=== PATIENT | male | born 1940 | race Caucasian/White ===

== ENCOUNTER 2017-03-31 10:27 | Inpatient (IN) | payer OTHER ==
[2017-03-31] VITALS (7 sets, daily range): BP systolic 134–173; BP diastolic 81–100; PULSE 70–86; TEMP 36.4–36.5; O2SAT 93–95; Ht 185.4 cm; Wt 104.3 kg
[~2017-03-31] VITALS: Ht 185.4 cm; Wt 104.3 kg
[~2017-03-31 10:27] MED LIST: ALBUAER2 INH; ASPI-435 PO; ATEN50TA8 PO; COEN10CA4 PO; FLVHFA110 INH; LACTTAB PO; LEVO50TA6 PO; LISI-461 PO; OXYB5TAB21 PO; TIOTCAP INH; WHEATAB2 PO; ZCR40 PO
[2017-03-31] MEDS ORDERED: ALBUTEROL 0.083% NEBU SOLN 3 ML VIAL INH STA (10:47)
[2017-03-31] MEDS ORDERED: HYDR12.55 PO (10:52)
[2017-03-31] MEDS ORDERED: CZR50 PO (10:52)
[2017-03-31] MEDS ORDERED: SPRIN PO (10:52)
[2017-03-31] MEDS ORDERED: PRED20TA2 PO (10:53)
[2017-03-31] MEDS ORDERED: LEVO1TAB33 PO (10:53)
[2017-03-31 11:11] LABS: BASO % 0.1 %; BASO ABS # 0.01 K/uL (0-0.2); COMPLETE YES; EOS % 0.7 %; IG% 0.4 %; LYMPH ABS # 2.43 K/uL (1.2-3.4); MEAN CELL VOLUME 90.1 fL (80-100); MEAN CORPUSCULAR HEMOGLOBIN 30.8 pg (25-34); MEAN CORPUSCULAR HGB CONC 34.2 g/dl (32-36); MEAN PLATELET VOLUME 9.3 fL (7.4-10.4); MONO % 12.2 %; NEUT % 71.6 %; PLATELET COUNT 248 K/uL (130-400); RED BLOOD COUNT 5.55 M/uL (4.7-6.1); WHITE BLOOD COUNT 16.19 K/uL (4.8-10.8)
--- NOTE | 2017-03-31 11:25 | DIAGNOSTIC IMAGING REPORT ---
CHEST ONE VIEW PORTABLE CLINICAL HISTORY: Cough. COMPARISON STUDY: No previous studies for comparison. FINDINGS: The patient is rotated. This likely accounts for asymmetric lucency of the left hemithorax. There is no consolidation or evidence of pulmonary edema. No pneumothorax or pleural effusion is present. Cardiomediastinal silhouette is normal. IMPRESSION: No acute cardiopulmonary findings. Electronically signed by: Troy Bateman M.D. 03/31/2017 11:24 AM Dictated Date/Time: 03/31/2017 11:23 AM
[2017-03-31 11:30] LABS: BUN/CREATININE RATIO 16.1 (10-20); CALCIUM 8.7 mg/dl (8.5-10.1); POTASSIUM 3.2 mmol/L (3.5-5.1)
[2017-03-31] MEDS ORDERED: ONDANSETRON INJ 2 MG/ML 2 ML VIAL IV PRN (13:30)
[2017-03-31] MEDS ORDERED: POTASSIUM CHLORIDE 20 MEQ TABCR PO ONE (13:30)
[2017-03-31] MEDS ORDERED: NICOTINE POLACRILEX 2 MG GUM MT PRN (13:30)
[2017-03-31] MEDS ORDERED: POLYETHYLENE (MIRALAX) 17 GM PACK PO PRN (13:30)
[2017-03-31] MEDS ORDERED: ACETAMINOPHEN 325 MG TAB PO PRN (13:30)
[2017-03-31] MEDS ORDERED: ALBUT/IPRATROP 3MG/0.5MG NEB 3 ML VIAL INH PRN (13:30)
[2017-03-31 13:39] LABS: INR 1.1 (0.9-1.1); PROTHROMBIN TIME (PATIENT) 11.8 SECONDS (9.0-12.0)
--- NOTE | 2017-03-31 13:46 | History and Physical ---
History & Physical Date & Time of Service: March 31, 2017 at 13:33 Chief Complaint: Chest Cold, Possible Pneumonia-Per 's Office Primary Care Physician: Tapan Kaye D.O. History of Present Illness Source: patient, family, clinic records 76 yo smoker presents to the ER today with his as a referral from an outside urgent care facility. He reports worsening of SOB over the last two days after having unsuccessfully treating a COPD exacerbation over the last 7- 10 days. He reports using Levaquin 500mg daily and three days into this course began a 5-day course of prednisone. His congestion improved and his cough ceased, however, he continued to have some difficulty breathing. He denies any chest pain, fevers, chills, nausea, vomiting, diarrhea, or systemic illness. He denies any headaches, sore throat, or ear fullness. He is currently requiring 2L oxygen via nasal canula and is not on home oxygen typically. He is compliant with inhalers and does not see a housekeeper child care. He did have another COPD exacerbation in Dec 2016, which was treated as an outpatient. He does continue to smoke. He reports that both his and a friend were sick with cold symptoms recently, when his symptoms began. Past Medical/Surgical History Medical Problems: (1) Asthma Status: Resolved (2) BPH (benign prostatic hyperplasia) Permanent Comment: s/p TURP in 2013 Status: Chronic (3) Bronchitis Status: Resolved (4) CAD (coronary artery disease) Permanent Comment: cath in 2006-mild luminal irregularities in the midportion of the LAD and small aneurysm located next to a moderate second right ventriculat branch off the RCA that was not flow-limiting. Status: Chronic (5) COPD (chronic obstructive pulmonary disease) Status: Chronic (6) COPD exacerbation Status: Chronic (7) H/O paroxysmal supraventricular tachycardia Status: Chronic (8) Heart disease Status: Resolved (9) HTN (hypertension) Status: Chronic (10) Hyperlipidemia Status: Chronic (11) Mild aortic insufficiency Status: Chronic (12) PNA (pneumonia) Status: Resolved (13) Tobacco abuse Status: Chronic Surgical Problems: (1) S/P AAA (abdominal aortic aneurysm) repair Permanent Comment: 1992 Status: Chronic Family History FH: heart disease Hypertension Social History Smoking Status: Current Every Day Smoker Smokeless Tobacco Use: Unknown Alcohol Use: occasionally Drug Use: none Marital Status: Housing status: lives with significant other Occupational Status: retired Immunizations History of Influenza Vaccine: Yes Influenza Vaccine Date: Aug 09, 2016 History of Tetanus Vaccine?: Yes Tetanus Immunization Date: Aug 10, 2013 History of Pneumococcal: Yes Pneumococcal Date: Aug 26, 2006 History of Hepatitis B Vaccine: No Multi-Drug Resistant Organisms History of MDRO: No Allergies Coded Allergies: Bacitracin (Verified Allergy, Unknown, ., 03/31/17) Neomycin (Verified Allergy, Unknown, ., 03/31/17) Polymyxin B (Verified Allergy, Unknown, ., 03/31/17) Sulfa Antibiotics (Verified Allergy, Unknown, ., 03/31/17) Home Medications Scheduled Aspirin (Aspirin 81), 81 MG PO QAM Atenolol (Tenormin), 25 MG PO BID Coenzyme Q10 (Ubidecarenone) (Coq-10), 10 MG PO QPM Fluticasone Propionate (Flovent Hfa), 2 PUFFS INH BID Hydrochlorothiazide (Hydrochlorothiazide), 12.5 MG PO DAILY Lactobacillus (Probiata), 1 TAB PO QAM Levofloxacin (Levaquin), 500 MG PO DAILY Levothyroxine Sodium (Levothyroxine Sodium), 50 MCG PO QAM Losartan Potassium (Losartan Potassium), 50 MG PO BID Prednisone (Prednisone Tab), 20 MG PO DIRECTED Simvastatin (Simvastatin), 40 MG PO HS Tiotropium [place] (Spiriva Handihaler), 1 CAP PO QAM Wheat Dextrin (Benefiber), 1 TAB PO QAM Scheduled PRN Albuterol (Ventolin Hfa), 2 PUFFS INH Q4H PRN for Shortness of Breath Review of Systems Constitutional: No chills, No fatigue, No fever, No weakness Eyes: No problem reported, No worsening of vision ENT: No hearing loss, No nasal symptoms, No sore throat Respiratory: + shortness of breath, No cough, No hemoptysis, No sputum, No wheezing Cardiovascular: No chest pain Abdomen: No GI bleeding, No constipation, No diarrhea, No nausea, No pain, No vomiting Musculoskeletal: No problem reported Genitourinary - Male: No problem reported Neurologic: No problem reported Psychiatric: + insomnia Hematologic / Lymphatic: No abnormal bleeding/bruising Integumentary: No new/changing skin lesions Allergic / Immunologic: No food allergies Physical Exam Vital Signs Date Time Temp Pulse Resp B/P Pulse Ox O2 Delivery O2 Flow Rate FiO2 03/31/17 12:10 93 Nasal Cannula 3.0 03/31/17 12:09 87 Room Air 03/31/17 12:00 76 22 162/84 88 Room Air 03/31/17 10:50 90 Room Air 03/31/17 10:31 36.8 72 20 190/102 91 Room Air GEN: WNWD, in no acute distress, alert and appropriate, NC in place and no conversational dyspnea on 2L HEENT: NC/AT, normal sclerae, pupils are equal and round, normal conjunctivae, TM could not be seen 2/2 cerumen in the external canals bilaterally, pharynx was clear, no submandibular or cervical LAD, no sinus TTP. CARDIO: reg rate, S1/2 heard without m/g/r LUNGS: expiratory wheezing throughout lungs in all espinoza ABD: soft, non-tender, non-distended, no rebound or guarding, +hernia which is easily reduced and non-tender EXTREMITY: no LE swelling or edema, extremities are warm and well-perfused NEURO: CN 2-12 grossly intact, sensation intact throughout MUSC: no gross focal deficits, patient moves all extremities equally. SKIN: warm and dry Diagnostics Laboratory Results Results Past 24 Hours Test 03/31/17 11:00 03/31/17 11:12 03/31/17 13:25 Range/Units White Blood Count 16.19 4.8-10.8 K/uL Red Blood Count 5.55 4.7-6.1 M/uL Hemoglobin 17.1 14.0-18.0 g/dL Hematocrit 50.0 42-52 % Mean Corpuscular Volume 90.1 80-100 fL Mean Corpuscular Hemoglobin 30.8 25-34 pg Mean Corpuscular Hemoglobin Concent 34.2 32-36 g/dl Platelet Count 248 130-400 K/uL Mean Platelet Volume 9.3 7.4-10.4 fL Neutrophils (%) (Auto) 71.6 % Lymphocytes (%) (Auto) 15.0 % Monocytes (%) (Auto) 12.2 % Eosinophils (%) (Auto) 0.7 % Basophils (%) (Auto) 0.1 % Neutrophils # (Auto) 11.59 1.4-6.5 K/uL Lymphocytes # (Auto) 2.43 1.2-3.4 K/uL Monocytes # (Auto) 1.98 0.11-0.59 K/uL Eosinophils # (Auto) 0.12 0-0.5 K/uL Basophils # (Auto) 0.01 0-0.2 K/uL RDW Standard Deviation 43.4 36.4-46.3 fL RDW Coefficient of Variation 13.2 11.5-14.5 % Immature Granulocyte % (Auto) 0.4 % Immature Granulocyte # (Auto) 0.06 0.00-0.02 K/uL Sodium Level 139 136-145 mmol/L Potassium Level 3.2 3.5-5.1 mmol/L Chloride Level 101 98-107 mmol/L Carbon Dioxide Level 32 21-32 mmol/L Anion Gap 6.0 3-11 mmol/L Blood Urea Nitrogen 16 7-18 mg/dl Creatinine 1.00 0.60-1.40 mg/dl Est Creatinine Clear Calc Drug Dose 80.9 ml/min Estimated GFR () 85.0 Estimated GFR (Non- 73.3 BUN/Creatinine Ratio 16.1 10-20 Random Glucose 98 70-99 mg/dl Calcium Level 8.7 8.5-10.1 mg/dl Influenza Type A Antigen Neg for Influ A NEG Influenza Type B Antigen Neg for Influ B NEG CXR normal Normal EKG (SR71) Impression Assessment and Plan 76 yo M smoker presents with SOB after 7-10 days of unsuccessful outpatient therapy 1. COPD exacerbation-there was an initial illness present and sick contacts which may have started this, however, he continues to smoke daily and is not interested in quitting at this time. Smoking cessation was strongly advised. Failure of Levaquin (5-8 days) and prednisone (approx 5 days) as outpatient and has persistent wheezing. CXR is clear and there is no cough, fever, chills, malaise or other symptoms concerning for pneumonia at this time. New hypoxia which can be explained by the wheezing on exam-mild but present. Admitting to floor and starting Solumedrol 40 IV q8 with neb treatments and doxycycline. Most likely no infectious etiology at this point with the duration and coverage of the Levaquin, so may stop doxy sooner than later, however, would like to cover him initially for the first 24 hours to ensure he is improving. Nicotine replacement givne. 2. HTN-controlled on outpatient meds including atenolol (holding with active wheezing(, losartan and HCTZ. Cont to monitor q4h 3. Active smoker-encouraged to quit, nicotine replacement offered/given 4. Hypothyroidism-cont Synthroid replacement 5. Hyperlipidemia-cont Simvastatin per outpatient regimen 6. Hypokalemia-replace PO, check Mg and recheck in am. Full Code Heart Healthy diet Dispo-to floor DVT proph-Lovenox/SCDs [facility] Level of Care Med/Surg Resuscitation Status FULL RESUSCITATION VTE Prophylaxis VTE Risk Assessment Done? Y/N: Yes Risk Level: Moderate Given or contraindicated: Enoxaparin (Lovenox)SQ
--- NOTE | 2017-03-31 14:43 | EMERGENCY ROOM VISIT NOTE ---
History Report prepared by [place]: Wilner Meyer Under the Supervision of: Dr. Edinson Dias D.O. First contact with patient: 10:37 Chief Complaint: CONGESTION Stated Complaint: CHEST COLD, POSSIBLE PNEUMONIA-PER 'S OFFICE History of Present Illness The patient is a 76 year old male with a history of COPD who presents to the Emergency Room with complaints of a persistent illness that started a week ago. He was referred here prior to arrival this morning from [facility] for a potential pneumonia workup. He did not have a chest x-ray there. The patient says that his illness first started off as a bad cough, but he took medication for it and the severe cough went away. The patient also notes that he has a chronic cough due to his COPD. He says that he has had a runny nose this week as well, with a clear discharge. He is also short of breath. The patient notes that he does not wear oxygen at home, but he has been using his albuterol twice per day, and a nebulizer only at night. The patient says that he has been taking Levaquin and Prednisone for the past week, and he has 5 days left on the Levaquin. He says that the Levaquin has not helped at all. The patient denies any fevers, chest pain, sore throat, nausea, vomiting, abdominal pain, or ear pain. His last bowel movement was this morning, and it was small but normal. Source of History: patient, spouse/significant other Onset: A week ago Position: other (global - illness) Timing: other (persistent) Associated Symptoms: + SOB, + cough, No abdominal pain, No chest pain, No diarrhea, No fevers, No nausea, No sorethroat, No vomiting Note: Associated symptoms: Runny nose with clear discharge. Denies ear pain. Review of Systems See HPI for pertinent positives & negatives. A total of 10 systems reviewed and were otherwise negative. Past Medical & Surgical Medical Problems: (1) Asthma (2) BPH (benign prostatic hyperplasia) (3) Bronchitis (4) CAD (coronary artery disease) (5) COPD (chronic obstructive pulmonary disease) (6) COPD exacerbation (7) H/O paroxysmal supraventricular tachycardia (8) Heart disease (9) HTN (hypertension) (10) Hyperlipidemia (11) Mild aortic insufficiency (12) PNA (pneumonia) (13) Tobacco abuse Surgical Problems: (1) S/P AAA (abdominal aortic aneurysm) repair Family History FH: heart disease Hypertension Social History Smoking Status: Current Every Day Smoker Alcohol Use: occasionally Marital Status: Housing Status: lives with family Occupation Status: retired Current/Historical Medications Scheduled Aspirin (Aspirin 81), 81 MG PO QAM Atenolol (Tenormin), 25 MG PO BID Coenzyme Q10 (Ubidecarenone) (Coq-10), 10 MG PO QPM Fluticasone Propionate (Flovent Hfa), 2 PUFFS INH BID Hydrochlorothiazide (Hydrochlorothiazide), 12.5 MG PO DAILY Lactobacillus (Probiata), 1 TAB PO QAM Levofloxacin (Levaquin), 500 MG PO DAILY Levothyroxine Sodium (Levothyroxine Sodium), 50 MCG PO QAM Losartan Potassium (Losartan Potassium), 50 MG PO BID Prednisone (Prednisone Tab), 20 MG PO DIRECTED Simvastatin (Simvastatin), 40 MG PO HS Tiotropium [place] (Spiriva Handihaler), 1 CAP PO QAM Wheat Dextrin (Benefiber), 1 TAB PO QAM Scheduled PRN Albuterol (Ventolin Hfa), 2 PUFFS INH Q4H PRN for Shortness of Breath Allergies Coded Allergies: Bacitracin (Verified Allergy, Unknown, ., 03/31/17) Neomycin (Verified Allergy, Unknown, ., 03/31/17) Polymyxin B (Verified Allergy, Unknown, ., 03/31/17) Sulfa Antibiotics (Verified Allergy, Unknown, ., 03/31/17) Physical Exam Vital Signs Date Time Temp Pulse Resp B/P Pulse Ox O2 Delivery O2 Flow Rate FiO2 03/31/17 12:10 93 Nasal Cannula 3.0 03/31/17 12:09 87 Room Air 03/31/17 12:00 76 22 162/84 88 Room Air 03/31/17 10:50 90 Room Air 03/31/17 10:31 36.8 72 20 190/102 91 Room Air Physical Exam GENERAL: sitting up in bed, no acute distress, nontoxic EYE EXAM: normal conjunctiva OROPHARYNX: no exudate, no erythema, lips, buccal mucosa, and tongue normal and mucous membranes are moist NECK: supple, no nuchal rigidity, no adenopathy, non-tender LUNGS: Diffuse wheezing bilateral HEART: no murmurs, S1 normal and S2 normal ABDOMEN: abdomen soft, non-tender, normo-active bowel sounds, no masses, no rebound or guarding. BACK: Back is symmetrical on inspection and there is no deformity, no midline tenderness, no CVA tenderness. SKIN: no rashes and no bruising UPPER EXTREMITIES: upper extremities are grossly normal. LOWER EXTREMITIES: No pitting edema. NEURO EXAM: Normal sensorium, cranial nerves II-XII grossly intact, normal speech, no gross weakness of arms, no gross weakness of legs. Medical Decision & Procedures ER Provider Diagnostic Interpretation: Radiology results as stated below per my review and the radiologist's interpretation: CHEST ONE VIEW PORTABLE CLINICAL HISTORY: Cough. COMPARISON STUDY: No previous studies for comparison. FINDINGS: The patient is rotated. This likely accounts for asymmetric lucency of the left hemithorax. There is no consolidation or evidence of pulmonary edema. No pneumothorax or pleural effusion is present. Cardiomediastinal silhouette is normal. IMPRESSION: No acute cardiopulmonary findings. Electronically signed by: Troy Bateman M.D. 03/31/2017 11:24 AM Dictated Date/Time: 03/31/2017 11:23 AM Laboratory Results 03/31/17 11:00 Red Blood Count 5.55, Mean Corpuscular Volume 90.1, Mean Corpuscular Hemoglobin 30.8, Mean Corpuscular Hemoglobin Concent 34.2, Mean Platelet Volume 9.3, Neutrophils (%) (Auto) 71.6, Lymphocytes (%) (Auto) 15.0, Monocytes (%) (Auto) 12.2, Eosinophils (%) (Auto) 0.7, Basophils (%) (Auto) 0.1, Neutrophils # (Auto ) 11.59, Lymphocytes # (Auto) 2.43, Monocytes # (Auto) 1.98, Eosinophils # (Auto ) 0.12, Basophils # (Auto) 0.01 03/31/17 11:00 Test 03/31/17 11:00 03/31/17 11:12 White Blood Count 16.19 K/uL (4.8-10.8) Red Blood Count 5.55 M/uL (4.7-6.1) Hemoglobin 17.1 g/dL (14.0-18.0) Hematocrit 50.0 % (42-52) Mean Corpuscular Volume 90.1 fL (80-100) Mean Corpuscular Hemoglobin 30.8 pg (25-34) Mean Corpuscular Hemoglobin Concent 34.2 g/dl (32-36) Platelet Count 248 K/uL (130-400) Mean Platelet Volume 9.3 fL (7.4-10.4) Neutrophils (%) (Auto) 71.6 % Lymphocytes (%) (Auto) 15.0 % Monocytes (%) (Auto) 12.2 % Eosinophils (%) (Auto) 0.7 % Basophils (%) (Auto) 0.1 % Neutrophils # (Auto) 11.59 K/uL (1.4-6.5) Lymphocytes # (Auto) 2.43 K/uL (1.2-3.4) Monocytes # (Auto) 1.98 K/uL (0.11-0.59) Eosinophils # (Auto) 0.12 K/uL (0-0.5) Basophils # (Auto) 0.01 K/uL (0-0.2) RDW Standard Deviation 43.4 fL (36.4-46.3) RDW Coefficient of Variation 13.2 % (11.5-14.5) Immature Granulocyte % (Auto) 0.4 % Immature Granulocyte # (Auto) 0.06 K/uL (0.00-0.02) Prothrombin Time 11.8 SECONDS (9.0-12.0) Prothromb Time International Ratio 1.1 (0.9-1.1) Anion Gap 6.0 mmol/L (3-11) Est Creatinine Clear Calc Drug Dose 80.9 ml/min Estimated GFR () 85.0 Estimated GFR (Non- 73.3 BUN/Creatinine Ratio 16.1 (10-20) Calcium Level 8.7 mg/dl (8.5-10.1) Magnesium Level 2.3 mg/dl (1.8-2.4) Influenza Type A Antigen Neg for Influ A (NEG) Influenza Type B Antigen Neg for Influ B (NEG) Laboratory results per my review. Medications Administered Medications (Trade) Dose Ordered Sig/Rosa Route Start Time Stop Time Status Last Admin Dose Admin Albuterol Sulfate (Ventolin 0.083% 2.5MG/3ML Neb) 5 mg NOW STAT INH 03/31/17 10:47 03/31/17 10:49 DC 03/31/17 11:26 5 MG ECG Indication: SOB/dyspnea Rate (beats per minute): 71 Rhythm: normal sinus Findings: Q waves (septal), no ectopy, other (normal axis) Comparison ECG Date: no prior available ED Course ED COURSE: Vital signs were reviewed and showed hypertensive and hypoxic vitals. The patients medical record was reviewed The above diagnostic studies were performed and reviewed. ED treatments and interventions as stated above. 1038: The patient was evaluated in room A9B. A complete history and physical examination was performed. 1047: Ordered Ventolin 0.083% 2.5MG/3ML Neb 5 mg INH. 1210: Upon reevaluation, the patient is resting comfortably. I discussed my findings with the patient and he understands and agrees with the treatment plan. Based on the patients age, coexisting illnesses, exam and lab findings the decision to treat as an inpatient was made. The patient remained stable while under my care. The patient will be evaluated for further management. 1213: I discussed the patient with Marjan Lancaster - she will evaluate the patient for further treatment. Medical Decision Differential diagnoses includes but is not limited to pneumonia, bronchitis, COPD/Asthma exacerbation, pneumothorax, pulmonary embolism, congestive heart failure, acute coronary syndrome Patient is a 76-year-old male with a past medical history of COPD that presents the ER for one week's worth of shortness of breath associated with cough and runny nose. Upon presentation his pulse ox only 90%. This drops down to 87% with any kind of exertion or movement. He was given neb treatment. Patient has are taking steroids and oral Levaquin today. He has been on Levaquin orally for the past 7 days. No improvement. Labs show a mild leukocytosis which I favor secondary to steroids is been taking. With his shortness of breath he was admitted/observed the internal medicine for further workup. Consults Time Called: 1207 Consulting Physician: Marjan Lancaster Returned Call: 1213 I discussed the patient with Marjan Lancaster - she will evaluate the patient for further treatment. Impression Primary Impression: COPD exacerbation Additional Impression: Bronchitis Scribe Attestation The scribe's documentation has been prepared under my direction and personally reviewed by me in its entirety. I confirm that the note above accurately reflects all work, treatment, procedures, and medical decision making performed by me. Departure Information Dispostion Being Evaluated By Hospitalist Referrals Tapan aKye D.O. (PCP) Patient Instructions My [facility] Problem Qualifiers
[2017-03-31] MEDS: METHYLPREDNISOLONE IV 40 MG in SYRINGE 0 ML IV SCH ×2 (14:48→21:19)
[2017-03-31] MEDS: ALBUT/IPRATROP 3MG/0.5MG NEB 3 ML VIAL NEB SCH ×2 (15:15→19:55)
[2017-03-31] MEDS ORDERED: NICOTINE 21 MG/24 HR TDSY TD ONE (15:27)
[2017-03-31] MEDS: DOXYCYCLINE HYCLATE 100 MG CAP PO SCH (21:18)
[2017-03-31] MEDS: SIMVASTATIN 40 MG TAB PO SCH (21:18)
[2017-03-31] MEDS: LOSARTAN POTASSIUM 50 MG TAB PO SCH (21:18)
[2017-03-31] MEDS: ENOXAPARIN 40 MG/0.4 ML SYR SQ SCH (21:20)
[2017-04-01] VITALS (7 sets, daily range): BP systolic 129–148; BP diastolic 71–82; PULSE 62–84; TEMP 36.7–36.8; O2SAT 91–98
[2017-04-01] MEDS: ALBUT/IPRATROP 3MG/0.5MG NEB 3 ML VIAL NEB SCH ×4 (02:25→19:42)
[2017-04-01] MEDS: METHYLPREDNISOLONE IV 40 MG in SYRINGE 0 ML IV SCH ×2 (05:57→18:24)
[2017-04-01] MEDS: LEVOTHYROXINE 50 MCG TAB PO SCH (05:57)
[2017-04-01] MEDS: ASPIRIN 81 MG ECTAB PO SCH (07:26)
[2017-04-01] MEDS: LOSARTAN POTASSIUM 50 MG TAB PO SCH ×2 (07:26→20:39)
[2017-04-01] MEDS: DOXYCYCLINE HYCLATE 100 MG CAP PO SCH ×2 (07:28→20:39)
[2017-04-01] MEDS: HYDROCHLOROTHIAZIDE 25 MG TAB PO SCH (07:28)
[2017-04-01] MEDS: LACTOBACILLUS ACIDOPHILUS (FLORANEX) TAB PO SCH (07:28)
[2017-04-01] MEDS: NICOTINE 21 MG/24 HR TDSY TD SCH (07:29)
--- NOTE | 2017-04-01 09:54 | Progress Note ---
Medicine Progress Note Date & Time of Visit: April 01, 2017 at 09:48. Subjective patient seen resting in bedside chair, doing puzzles comfortable states he feels improved today compared to yesterday breathing better has occasional cough with clear sputum denies chest pain, dyspnea, palpitations, dizziness no other symptoms Objective Last 8 Hrs Date Time Temp Pulse Resp B/P Pulse Ox O2 Delivery O2 Flow Rate FiO2 04/01/17 08:00 Nasal Cannula 3.0 04/01/17 07:43 36.8 71 18 148/82 98 3.0 04/01/17 06:58 74 18 94 Nasal Cannula 3.0 04/01/17 02:25 83 18 95 Nasal Cannula 4.0 Physical Exam: General- oriented x 3, not in distress, speaks in sentences with no effort Eyes- EOMI, anicteric ENT- oropharynx clear Neck- supple, no JVD, no adenopathy, no thyromegaly; no bruits appreciated Lungs- clear breath sounds bilaterally, no wheezing, no rales Heart- regular rhythm; no murmur, normal rate Abdomen- normal bowel sounds, soft, nontender, no masses Extremities- no pretibial edema, no calf tenderness; peripheral pulses intact Neuro- alert, oriented x 3; no gross focal deficits Skin- warm & dry Laboratory Results: Last 24 Hours Test 03/31/17 11:00 03/31/17 11:12 04/01/17 09:38 White Blood Count 16.19 K/uL Red Blood Count 5.55 M/uL Hemoglobin 17.1 g/dL Hematocrit 50.0 % Mean Corpuscular Volume 90.1 fL Mean Corpuscular Hemoglobin 30.8 pg Mean Corpuscular Hemoglobin Concent 34.2 g/dl Platelet Count 248 K/uL Mean Platelet Volume 9.3 fL Neutrophils (%) (Auto) 71.6 % Lymphocytes (%) (Auto) 15.0 % Monocytes (%) (Auto) 12.2 % Eosinophils (%) (Auto) 0.7 % Basophils (%) (Auto) 0.1 % Neutrophils # (Auto) 11.59 K/uL Lymphocytes # (Auto) 2.43 K/uL Monocytes # (Auto) 1.98 K/uL Eosinophils # (Auto) 0.12 K/uL Basophils # (Auto) 0.01 K/uL RDW Standard Deviation 43.4 fL RDW Coefficient of Variation 13.2 % Immature Granulocyte % (Auto) 0.4 % Immature Granulocyte # (Auto) 0.06 K/uL Prothrombin Time 11.8 SECONDS Prothromb Time International Ratio 1.1 Sodium Level 139 mmol/L Potassium Level 3.2 mmol/L Chloride Level 101 mmol/L Carbon Dioxide Level 32 mmol/L Anion Gap 6.0 mmol/L Blood Urea Nitrogen 16 mg/dl Creatinine 1.00 mg/dl Est Creatinine Clear Calc Drug Dose 80.9 ml/min Estimated GFR () 85.0 Estimated GFR (Non- 73.3 BUN/Creatinine Ratio 16.1 Random Glucose 98 mg/dl Calcium Level 8.7 mg/dl Magnesium Level 2.3 mg/dl Influenza Type A Antigen Neg for Influ A Influenza Type B Antigen Neg for Influ B Assessment & Plan 76 year old male with history of COPD, Smoking, CAD, PSVT, other problems below presenting with cough and shortness of breath. ACUTE HYPOXIC RESPIRATORY FAILURE SECONDARY TO ACUTE COPD EXACERBATION - failed outpatient treatment with prednisone and levaqun - on admission day, O2 sat 87% on room air at one point - CXR : no pneumonia - no wheezing today - taper IV steroids to 40mg q12h continue Doxycycline, Nebs q6h CAD no cardiac symptoms continue Aspirin, Statin, Atenolol, Losartan HTN - continue Atenolol, HCTZ, Losartan Active smoker - advised cessation Hypothyroidism-cont Synthroid replacement Hyperlipidemia-cont Simvastatin per outpatient regimen Hypokalemia pending K Full Code Heart Healthy diet Dispo- possible d/c home tomorrow may need 2 step exercise test DVT proph-Lovenox/SCDs Vanessa Wright DO [facility] Hospitalist Current Inpatient Medications: Current Inpatient Medications Medications (Trade) Dose Ordered Sig/Rosa Route Start Time Stop Time Status Last Admin Dose Admin Albuterol/ Ipratropium (Duoneb) 3 ml Q6R NEB 03/31/17 15:00 04/30/17 14:59 04/01/17 06:58 3 ML Enoxaparin Sodium (Lovenox Inj) 40 mg QPM SQ 03/31/17 21:00 04/30/17 20:59 03/31/17 21:20 40 MG Acetaminophen (Tylenol Tab) 650 mg Q4H PRN PO 03/31/17 13:30 04/30/17 13:29 Polyethylene (Miralax Powder Packet) 17 gm DAILY PRN PO 03/31/17 13:30 04/30/17 13:29 Ondansetron HCl (Zofran Inj) 4 mg Q6H PRN IV 03/31/17 13:30 04/30/17 13:29 Albuterol/ Ipratropium (Duoneb) 3 ml Q2H PRN INH 03/31/17 13:30 04/30/17 13:29 Nicotine Polacrilex 1 piece 1 piece PRN PRN MT 03/31/17 13:30 04/30/17 13:29 Methylprednisolone Sodium Succinate/ Syringe (Solu-Medrol IV/ Syringe) 0.64 ml @ 1.5 mls/min Q8H IV 03/31/17 15:00 04/30/17 14:59 04/01/17 05:57 1.5 MLS/MIN Doxycycline Hyclate (Vibramycin Cap) 100 mg BID PO 03/31/17 21:00 04/07/17 20:59 04/01/17 07:28 100 MG Aspirin (Ecotrin Tab) 81 mg QAM PO 04/01/17 09:00 05/01/17 08:59 04/01/17 07:26 81 MG Lactobacillus Acidophilus (Floranex Tab) 1 tab QAM PO 04/01/17 09:00 05/01/17 08:59 04/01/17 07:28 1 TAB Levothyroxine Sodium (Synthroid Tab) 50 mcg DAILYBB PO 04/01/17 06:30 05/01/17 06:59 04/01/17 05:57 50 MCG Losartan Potassium (coZAAR TAB) 50 mg BID PO 03/31/17 21:00 04/30/17 20:59 04/01/17 07:26 50 MG Simvastatin (Zocor Tab) 40 mg HS PO 03/31/17 21:00 04/30/17 20:59 03/31/17 21:18 40 MG Hydrochlorothiazide (Hydrochlorothiazide Tab) 12.5 mg QAM PO 04/01/17 09:00 05/01/17 08:59 04/01/17 07:28 12.5 MG Nicotine (Nicoderm Cq 21MG Patch) 1 patch QAM TD 04/01/17 09:00 05/01/17 08:59 04/01/17 07:29 1 PATCH Miscellaneous (Remove Nicoderm Patch) 1 ea HS N/A 03/31/17 21:00 04/30/17 20:59 03/31/17 21:00 1 EA Atenolol (Tenormin Tab) 25 mg BID PO 04/01/17 21:00 05/01/17 20:59
[2017-04-01 10:39] LABS: COMPLETE YES; HEMATOCRIT 48.8 % (42-52); IG% 0.6 %; LYMPH % 5.6 %; LYMPH ABS # 0.91 K/uL (1.2-3.4); MEAN CORPUSCULAR HEMOGLOBIN 30.4 pg (25-34); MEAN CORPUSCULAR HGB CONC 33.4 g/dl (32-36); MEAN PLATELET VOLUME 9.4 fL (7.4-10.4); MONO % 6.1 %; NEUT % 87.7 %; PLATELET COUNT 227 K/uL (130-400); RED BLOOD COUNT 5.36 M/uL (4.7-6.1)
[2017-04-01 11:09] LABS: BUN/CREATININE RATIO 17.1 (10-20); CALCIUM 9.2 mg/dl (8.5-10.1); CREATININE 1.2 mg/dl (0.60-1.40); POTASSIUM 3.7 mmol/L (3.5-5.1)
[2017-04-01] MEDS: SIMVASTATIN 40 MG TAB PO SCH (20:40)
[2017-04-01] MEDS: ENOXAPARIN 40 MG/0.4 ML SYR SQ SCH (20:41)
[2017-04-02 00:19] VITALS: BP 120/63; PULSE 71; TEMP 36.3; O2SAT 94
[2017-04-02 02:16] VITALS: PULSE 69; O2SAT 95
[2017-04-02] MEDS: ALBUT/IPRATROP 3MG/0.5MG NEB 3 ML VIAL NEB SCH ×3 (02:16→14:41)
[2017-04-02] MEDS: LEVOTHYROXINE 50 MCG TAB PO SCH (05:33)
[2017-04-02] MEDS: METHYLPREDNISOLONE IV 40 MG in SYRINGE 0 ML IV SCH (05:33)
[2017-04-02 05:56] LABS: BASO % 0.1 %; BASO ABS # 0.02 K/uL (0-0.2); COMPLETE YES; HEMATOCRIT 47.4 % (42-52); IG% 0.6 %; LYMPH % 5.7 %; LYMPH ABS # 1.18 K/uL (1.2-3.4); MEAN CELL VOLUME 91.7 fL (80-100); MEAN CORPUSCULAR HEMOGLOBIN 30.6 pg (25-34); MEAN CORPUSCULAR HGB CONC 33.3 g/dl (32-36); MEAN PLATELET VOLUME 9.3 fL (7.4-10.4); MONO % 8.3 %; NEUT % 85.3 %; PLATELET COUNT 242 K/uL (130-400); RED BLOOD COUNT 5.17 M/uL (4.7-6.1); WHITE BLOOD COUNT 20.68 K/uL (4.8-10.8)
[2017-04-02 06:32] LABS: BUN/CREATININE RATIO 23.5 (10-20); CALCIUM 9.2 mg/dl (8.5-10.1); MAGNESIUM 2.6 mg/dl (1.8-2.4); POTASSIUM 4.2 mmol/L (3.5-5.1)
[2017-04-02 07:55] VITALS: PULSE 78; O2SAT 98
[2017-04-02 07:58] VITALS: BP 146/68; PULSE 72; TEMP 36.8; O2SAT 95
[2017-04-02] MEDS: DOXYCYCLINE HYCLATE 100 MG CAP PO SCH (08:39)
[2017-04-02] MEDS: LOSARTAN POTASSIUM 50 MG TAB PO SCH (08:39)
[2017-04-02] MEDS: HYDROCHLOROTHIAZIDE 25 MG TAB PO SCH (08:39)
[2017-04-02] MEDS: NICOTINE 21 MG/24 HR TDSY TD SCH (08:40)
[2017-04-02] MEDS: ASPIRIN 81 MG ECTAB PO SCH (08:40)
[2017-04-02] MEDS: LACTOBACILLUS ACIDOPHILUS (FLORANEX) TAB PO SCH (08:40)
[2017-04-02 12:44] VITALS: O2SAT 88
--- NOTE | 2017-04-02 14:30 | Progress Note ---
Medicine Progress Note Date & Time of Visit: April 02, 2017 at 14:22. Subjective patient seen sitting up in bedside chair, comfortable states he feels much better overall breathing much better less cough, clear sputum no chest pain denies other symptoms states he is ready and would like to be discharged today no other symptoms Objective Last 8 Hrs Date Time Temp Pulse Resp B/P Pulse Ox O2 Delivery O2 Flow Rate FiO2 04/02/17 12:44 88 Room Air 04/02/17 08:45 Nasal Cannula 2.0 04/02/17 07:58 36.8 72 18 146/68 95 2.0 04/02/17 07:55 78 16 98 Nasal Cannula 2.0 Physical Exam: General- oriented x 3, not in distress, speaks in sentences with no effort Eyes- anicteric Neck- no JVD, no adenopathy Lungs- clear breath sounds bilaterally, no wheezing, no rales Heart- regular rhythm; no murmur, normal rate Abdomen- normal bowel sounds, soft, nontender, no masses Extremities- no pretibial edema, no calf tenderness Neuro- alert, oriented x 3; no gross focal deficits Skin- warm & dry Laboratory Results: Last 24 Hours Test 04/02/17 05:33 White Blood Count 20.68 K/uL Red Blood Count 5.17 M/uL Hemoglobin 15.8 g/dL Hematocrit 47.4 % Mean Corpuscular Volume 91.7 fL Mean Corpuscular Hemoglobin 30.6 pg Mean Corpuscular Hemoglobin Concent 33.3 g/dl Platelet Count 242 K/uL Mean Platelet Volume 9.3 fL Neutrophils (%) (Auto) 85.3 % Lymphocytes (%) (Auto) 5.7 % Monocytes (%) (Auto) 8.3 % Eosinophils (%) (Auto) 0.0 % Basophils (%) (Auto) 0.1 % Neutrophils # (Auto) 17.64 K/uL Lymphocytes # (Auto) 1.18 K/uL Monocytes # (Auto) 1.72 K/uL Eosinophils # (Auto) 0.00 K/uL Basophils # (Auto) 0.02 K/uL RDW Standard Deviation 46.1 fL RDW Coefficient of Variation 13.6 % Immature Granulocyte % (Auto) 0.6 % Immature Granulocyte # (Auto) 0.12 K/uL Sodium Level 139 mmol/L Potassium Level 4.2 mmol/L Chloride Level 101 mmol/L Carbon Dioxide Level 32 mmol/L Anion Gap 6.0 mmol/L Blood Urea Nitrogen 24 mg/dl Creatinine 1.00 mg/dl Est Creatinine Clear Calc Drug Dose 80.9 ml/min Estimated GFR () 85.0 Estimated GFR (Non- 73.3 BUN/Creatinine Ratio 23.5 Random Glucose 137 mg/dl Calcium Level 9.2 mg/dl Magnesium Level 2.6 mg/dl Assessment & Plan 76 year old male with history of COPD, Smoking, CAD, PSVT, other problems below presenting with cough and shortness of breath. ACUTE HYPOXIC RESPIRATORY FAILURE SECONDARY TO ACUTE COPD EXACERBATION - failed outpatient treatment with prednisone and levaqun - on admission day, O2 sat 87% on room air at one point - CXR : no pneumonia - no wheezing today - given tapering course of IV Solumedrol Doxycycline, Nebs q6h - discharge on: Doxycycline 100mg BID x 5 more days Prednisone taper starting at 60mg bid then, 40mg bid, etc. start Adavir 250/50mcg 1 puff BID, d/c Flovent continue Spiriva start Duoneb PRN q2-4 hrs fff up with PCP in 3-5 days CAD no cardiac symptoms continue Aspirin, Statin, Atenolol, Losartan HTN - continue Atenolol, HCTZ, Losartan Active smoker - advised cessation to prevent COPD exacerbation, verbalized agreement patient requesting Nicotine patch Hypothyroidism-cont Synthroid replacement Hyperlipidemia-cont Simvastatin per outpatient regimen Hypokalemia resolved Full Code Heart Healthy diet Dispo d/c home with home health services ff up with PCP in 1 week Current Inpatient Medications: Current Inpatient Medications Medications (Trade) Dose Ordered Sig/Rosa Route Start Time Stop Time Status Last Admin Dose Admin Albuterol/ Ipratropium (Duoneb) 3 ml Q6R NEB 03/31/17 15:00 04/30/17 14:59 04/02/17 07:54 3 ML Enoxaparin Sodium (Lovenox Inj) 40 mg QPM SQ 03/31/17 21:00 04/30/17 20:59 04/01/17 20:41 40 MG Acetaminophen (Tylenol Tab) 650 mg Q4H PRN PO 03/31/17 13:30 04/30/17 13:29 Polyethylene (Miralax Powder Packet) 17 gm DAILY PRN PO 03/31/17 13:30 04/30/17 13:29 Ondansetron HCl (Zofran Inj) 4 mg Q6H PRN IV 03/31/17 13:30 04/30/17 13:29 Albuterol/ Ipratropium (Duoneb) 3 ml Q2H PRN INH 03/31/17 13:30 04/30/17 13:29 Nicotine Polacrilex (Nicorette 2MG Gum) 1 piece PRN PRN MT 03/31/17 13:30 04/30/17 13:29 Doxycycline Hyclate (Vibramycin Cap) 100 mg BID PO 03/31/17 21:00 04/07/17 20:59 04/02/17 08:39 100 MG Aspirin (Ecotrin Tab) 81 mg QAM PO 04/01/17 09:00 05/01/17 08:59 04/02/17 08:40 81 MG Lactobacillus Acidophilus (Floranex Tab) 1 tab QAM PO 04/01/17 09:00 05/01/17 08:59 04/02/17 08:40 1 TAB Levothyroxine Sodium (Synthroid Tab) 50 mcg DAILYBB PO 04/01/17 06:30 05/01/17 06:59 04/02/17 05:33 50 MCG Losartan Potassium (coZAAR TAB) 50 mg BID PO 03/31/17 21:00 04/30/17 20:59 04/02/17 08:39 50 MG Simvastatin (Zocor Tab) 40 mg HS PO 03/31/17 21:00 04/30/17 20:59 04/01/17 20:40 40 MG Hydrochlorothiazide (Hydrochlorothiazide Tab) 12.5 mg QAM PO 04/01/17 09:00 05/01/17 08:59 04/02/17 08:39 12.5 MG Nicotine (Nicoderm Cq 21MG Patch) 1 patch QAM TD 04/01/17 09:00 05/01/17 08:59 04/02/17 08:40 1 PATCH Miscellaneous (Remove Nicoderm Patch) 1 ea HS N/A 03/31/17 21:00 04/30/17 20:59 04/01/17 20:41 1 EA Atenolol 25 mg 25 mg BID PO 04/01/17 21:00 05/01/17 20:59 04/02/17 08:39 25 MG Methylprednisolone Sodium Succinate/ Syringe (Solu-Medrol IV/ Syringe) 0.64 ml @ 1.5 mls/min Q12H IV 04/01/17 18:00 05/01/17 17:59 04/02/17 05:33 1.5 MLS/MIN
[2017-04-02] MEDS ORDERED: IPRASOL4 INH (15:07)
[2017-04-02] MEDS ORDERED: PRED10TA PO (15:07)
[2017-04-02] MEDS ORDERED: NICO14DI9 TOP (15:07)
[2017-04-02] MEDS ORDERED: DXY100 PO (15:07)
[2017-04-02] MEDS ORDERED: ADVIN25050 INH (15:07)
--- NOTE | 2017-04-02 15:12 | Discharge Instructions ---
Discharge Instructions Date of Service April 02, 2017. Admission Reason for Admission: Copd Exacerbation Discharge Discharge Diagnosis / Problem: COPD EXACERBATION Discharge Goals Goal(s): Diagnostic testing, Therapeutic intervention Activity Recommendations Activity Limitations: as noted below (NO HEAVY EXERTION UNTIL RE-EVALUATED BY PRIMARY CARE PHYSICIAN) Lifting Limitations: until after follow-up appointment Exercise/Sports Limitations: until after follow-up appointment . Instructions / Follow-Up Instructions / Follow-Up PLEASE REVIEW YOUR NEW MEDICATION LIST AND FOLLOW INSTRUCTIONS CAREFULLY. YOU MAY ADMINISTER BREATHING TREATMENTS BY NEBULIZER MACHINE EVERY 2-4 HOURS NEEDED FOR SHORTNESS OF BREATH. CALL PRIMARY CARE PHYSICIAN OR RETURN TO ER IF WITH INCREASING COUGH, SHORTNESS OF BREATH, FEVER/CHILLS, DIARRHEA. NO SMOKING. CALL 911 IMMEDIATELY IF YOU HAVE PERSISTENT SHORTNESS OF BREATH. FOLLOW UP WITH DR. RAMIREZ ON WEDNESDAY APRIL 05, 2017 AT 10:55 AM. Current Hospital Diet Patient's current hospital diet: AHA Diet (Heart Healthy) Discharge Diet Recommended Diet: AHA Diet (Heart Healthy) Pending Studies Studies pending at discharge: no Medical Emergencies . Who to Call and When: Medical Emergencies: If at any time you feel your situation is an emergency, please call 911 immediately. . Non-Emergent Contact Non-Emergency issues call your: Primary Care Provider Call Non-Emergent contact if: you have a fever, you have any medication questions . Past History Medical & Surgical History: (1) Bronchitis (2) COPD exacerbation (3) HTN (hypertension) (4) COPD (chronic obstructive pulmonary disease) (5) H/O paroxysmal supraventricular tachycardia (6) CAD (coronary artery disease) (7) Tobacco abuse (8) Mild aortic insufficiency (9) Hyperlipidemia (10) BPH (benign prostatic hyperplasia) (11) S/P AAA (abdominal aortic aneurysm) repair . "Provider Documentation" section prepared by Kendall Stoll. . VTE Core Measure Inpt VTE Proph given/why not?: Enoxaparin (Lovenox)SQ
[2017-04-02] MEDS ORDERED: OMEP40CA41 PO (15:17)
[2017-04-02 15:18] VITALS: BP 146/68; PULSE 72; TEMP 36.8; O2SAT 88
--- NOTE | 2017-04-02 15:19 | Discharge Summary ---
Discharge Summary Date of Service April 02, 2017. Discharge Summary Admission Date: March 31, 2017 at 13:25 Discharge Date: April 02, 2017 Discharge Disposition: Home with services Principal Diagnosis: ACUTE HYPOXIC RESPIRATORY FAILURE SECONDARY TO ACUTE COPD EXACERBATION FROM ACUTE BRONCHITIS Secondary Diagnoses/Problems: PLEASE REFER TO HOSPITAL COURSE BELOW. Procedures: CHEST ONE VIEW PORTABLE CLINICAL HISTORY: Cough. COMPARISON STUDY: No previous studies for comparison. FINDINGS: The patient is rotated. This likely accounts for asymmetric lucency of the left hemithorax. There is no consolidation or evidence of pulmonary edema. No pneumothorax or pleural effusion is present. Cardiomediastinal silhouette is normal. IMPRESSION: No acute cardiopulmonary findings. Pending Studies/Follow-Up: PLEASE REFER TO HOSPITAL COURSE BELOW. Medication Reconciliation New Medications: Fluticasone Prop/Salmeterol (Advair Diskus 250-50 Mcg/Dose) 14 Puff/1 Inhaler Aerp 1 PUFF INH BID for 30 Days, #1 INHA 2 Refills Nicotine (Nicotine) 14 Mg/24 Hr Dis 1 PATCH TOP DAILY for 30 Days, #30 PATCH Omeprazole (Prilosec) 40 Mg Cap 40 MG PO DAILY for 12 Days, #12 CAP Prednisone Tab (Prednisone) 10 Mg Tab 10 MG PO UD, #33 TAB take 6 tabs po daily x 2 days, then take 4 tabs po daily x 2 days, then take 3 tabs po daily x 2 days, then take 2 tabs po daily x 2 days, then take 1 tab po daily x 2 days, then take 1/2 tab po daily x 2 days, then STOP Doxycycline Hyclate (Doxycycline Hyclate) 100 Mg Cap 100 MG PO BID for 5 Days, #10 CAP 0 Refills Ipratropium-Albuterol (Duoneb) 3 Ml Nebu 3 ML INH Q2H PRN for sob/wheezing for 30 Days, #20 UNITS 2 Refills Continued Medications: Aspirin (Aspirin 81) 81 Mg Tab 81 MG PO QAM Do not take for 4-5 days. If no significant hematuria, then can resume. Atenolol (Tenormin) 50 Mg Tab 25 MG PO BID, TAB Coenzyme Q10 (Ubidecarenone) (Coq-10) 10 Mg Cap 10 MG PO QPM Hydrochlorothiazide (Hydrochlorothiazide) 12.5 Mg Tab 12.5 MG PO DAILY, TAB 3 Refills Lactobacillus (Probiata) 1 Tab Tab 1 TAB PO QAM Levothyroxine Sodium (Levothyroxine Sodium) 50 Mcg Tab 50 MCG PO QAM Losartan Potassium (Losartan Potassium) 50 Mg Tab 50 MG PO BID Simvastatin (Simvastatin) 40 Mg Tab 40 MG PO HS Tiotropium [place] (Spiriva Handihaler) 5 Puff/90 Mcg Aerp 1 CAP PO QAM Wheat Dextrin (Benefiber) 1 Tab Tab 1 TAB PO QAM Discontinued Medications: Albuterol (Ventolin Hfa) Aers 2 PUFFS INH Q4H PRN for Shortness of Breath Fluticasone Propionate (Flovent Hfa) 120 Puffs/18734 Mcg Aero 2 PUFFS INH BID Levofloxacin (Levaquin) 500 Mg Tab 500 MG PO DAILY for 7 Days, TAB Prednisone (Prednisone Tab) 20 Mg Tab 20 MG PO DIRECTED, TAB Admission Information HPI (per Admitting provider): 76 yo smoker presents to the ER today with his as a referral from an outside urgent care facility. He reports worsening of SOB over the last two days after having unsuccessfully treating a COPD exacerbation over the last 7- 10 days. He reports using Levaquin 500mg daily and three days into this course began a 5-day course of prednisone. His congestion improved and his cough ceased, however, he continued to have some difficulty breathing. He denies any chest pain, fevers, chills, nausea, vomiting, diarrhea, or systemic illness. He denies any headaches, sore throat, or ear fullness. He is currently requiring 2L oxygen via nasal canula and is not on home oxygen typically. He is compliant with inhalers and does not see a ap operator. He did have another COPD exacerbation in Dec 2016, which was treated as an outpatient. He does continue to smoke. He reports that both his and a friend were sick with cold symptoms recently, when his symptoms began. Physical Exam (per Admitting): GEN: WNWD, in no acute distress, alert and appropriate, NC in place and no conversational dyspnea on 2L HEENT: NC/AT, normal sclerae, pupils are equal and round, normal conjunctivae, TM could not be seen 2/2 cerumen in the external canals bilaterally, pharynx was clear, no submandibular or cervical LAD, no sinus TTP. CARDIO: reg rate, S1/2 heard without m/g/r LUNGS: expiratory wheezing throughout lungs in all espinoza ABD: soft, non-tender, non-distended, no rebound or guarding, +hernia which is easily reduced and non-tender EXTREMITY: no LE swelling or edema, extremities are warm and well-perfused NEURO: CN 2-12 grossly intact, sensation intact throughout MUSC: no gross focal deficits, patient moves all extremities equally. SKIN: warm and dry Hospital Course 76 year old male with history of COPD, Smoking, CAD, PSVT, other problems below presenting with cough and shortness of breath. ACUTE HYPOXIC RESPIRATORY FAILURE SECONDARY TO ACUTE COPD EXACERBATION FROM ACUTE BRONCHITIS - failed outpatient treatment with prednisone and levaqun - on admission day, O2 sat 87% on room air at one point - CXR : no pneumonia - no wheezing today - given tapering course of IV Solumedrol Doxycycline, Nebs q6h - discharge on: Doxycycline 100mg BID x 5 more days Prednisone taper starting at 60mg bid then, 40mg bid, etc. (Prilosec while on Prednisone) start Adavir 250/50mcg 1 puff BID, d/c Flovent continue Spiriva start Duoneb PRN q2-4 hrs fff up with PCP in 3-5 days CAD no cardiac symptoms continue Aspirin, Statin, Atenolol, Losartan HTN - continue Atenolol, HCTZ, Losartan Active smoker - advised cessation to prevent COPD exacerbation, verbalized agreement patient requesting Nicotine patch Hypothyroidism-cont Synthroid replacement Hyperlipidemia-cont Simvastatin per outpatient regimen Hypokalemia resolved Full Code Heart Healthy diet Dispo d/c home with home health services ff up with PCP in 1 week case discussed at length and in detail with patient and his all questions answered they are comfortable and agreeable with plan of care Total time spent on discharge = 50 minutes This includes examination of the patient, discharge planning, medication reconciliation, and communication with other providers. Discharge Instructions Discharge Instructions Date of Service April 02, 2017. Admission Reason for Admission: Copd Exacerbation Discharge Discharge Diagnosis / Problem: COPD EXACERBATION Discharge Goals Goal(s): Diagnostic testing, Therapeutic intervention Activity Recommendations Activity Limitations: as noted below (NO HEAVY EXERTION UNTIL RE-EVALUATED BY PRIMARY CARE PHYSICIAN) Lifting Limitations: until after follow-up appointment Exercise/Sports Limitations: until after follow-up appointment . Instructions / Follow-Up Instructions / Follow-Up PLEASE REVIEW YOUR NEW MEDICATION LIST AND FOLLOW INSTRUCTIONS CAREFULLY. YOU MAY ADMINISTER BREATHING TREATMENTS BY NEBULIZER MACHINE EVERY 2-4 HOURS NEEDED FOR SHORTNESS OF BREATH. CALL PRIMARY CARE PHYSICIAN OR RETURN TO ER IF WITH INCREASING COUGH, SHORTNESS OF BREATH, FEVER/CHILLS, DIARRHEA. NO SMOKING. CALL 911 IMMEDIATELY IF YOU HAVE PERSISTENT SHORTNESS OF BREATH. FOLLOW UP WITH DR. RAMIREZ ON WEDNESDAY APRIL 05, 2017 AT 10:55 AM. Current Hospital Diet Patient's current hospital diet: AHA Diet (Heart Healthy) Discharge Diet Recommended Diet: AHA Diet (Heart Healthy) Pending Studies Studies pending at discharge: no Medical Emergencies . Who to Call and When: Medical Emergencies: If at any time you feel your situation is an emergency, please call 911 immediately. . Non-Emergent Contact Non-Emergency issues call your: Primary Care Provider Call Non-Emergent contact if: you have a fever, you have any medication questions . Past History Medical & Surgical History: (1) Bronchitis (2) COPD exacerbation (3) HTN (hypertension) (4) COPD (chronic obstructive pulmonary disease) (5) H/O paroxysmal supraventricular tachycardia (6) CAD (coronary artery disease) (7) Tobacco abuse (8) Mild aortic insufficiency (9) Hyperlipidemia (10) BPH (benign prostatic hyperplasia) (11) S/P AAA (abdominal aortic aneurysm) repair . "Provider Documentation" section prepared by Kendall Stoll. . VTE Core Measure Inpt VTE Proph given/why not?: Enoxaparin (Lovenox)SQ
== END 2017-04-02 15:45 | disposition home health service (06) | DRG 190 ==
LOC: ENRESERVDT → ENRESERVTM → C.EDA 10:40 → C.MS2W 13:25
PROVIDERS: ADMIT Hospitalist; ATTEND Internal Medicine
DX: J44.0 Chronic obstructive pulmonary disease with (acute) lower respiratory infection (principal); J96.01 Acute respiratory failure with hypoxia; I47.1 Supraventricular tachycardia; J20.9 Acute bronchitis, unspecified; E87.6 Hypokalemia; J45.909 Unspecified asthma, uncomplicated; I25.10 Atherosclerotic heart disease of native coronary artery without angina pectoris; I11.9 Hypertensive heart disease without heart failure; E03.9 Hypothyroidism, unspecified; E78.5 Hyperlipidemia, unspecified; F17.200 Nicotine dependence, unspecified, uncomplicated; Z51.81 Encounter for therapeutic drug level monitoring; Z79.899 Other long term (current) drug therapy; Z79.82 Long term (current) use of aspirin; Z82.49 Family history of ischemic heart disease and other diseases of the circulatory system

== ENCOUNTER → 2017-10-29 | Outpatient (CLI) | payer OTHER ==
[~2017-10-29] MED LIST changes: +ADVIN25050 INH; -ALBUAER2 INH; +CZR50 PO; +DXY100 PO; -FLVHFA110 INH; +HYDR12.55 PO; +IPRASOL4 INH; -LISI-461 PO; -OXYB5TAB21 PO; +SPRIN PO; -TIOTCAP INH
--- NOTE | 2017-10-30 07:39 | PAP/PSG TECHNICIAN REPORT ---
[facility] Casing Finisher And Stuffer Polysomnogram Report Study name: None Report date: 10/30/2017 Study date: 10/29/2017 Referring Physician: Cammy Guillen Name: EMILIA MENDEZ Interpreting Physician: Dani Antunez M.D. Date of : 1940 Casing Finisher And Stuffer: Eli Paul, PSGT. Sex: Male Age: 77 StudyType: PSG Weight: 240 lbs Height: 77 years, Height 6' 1" Neck Circum: BMI: 31.66 Medications: Lorazepam 0.5 mg, Duoneb, Ventolin HFA, Benefiber, Breo, Cozzaar, hctz, Spiriva,Zocor, Prilosec, Levoxyl, Tenormin, Vit.-D, Metrogel,CO Q10. Patient History 77 yr. old male here for a possible split night sleep study. Patient was recently noted to have nocturnal hypoxemia. Patient sleeps slightly elevated to avoid coughing. ESS4/24, Neck = 17 inches. Parameters Monitored NPSG: E1-M2, E2-M1, Fp1-M2, Fp2-M1, F3-M2, F4-M2, F4-M1, C3-M2, C4-M2, C4-M1, O1-M2, O2-M2, O2-M1, T3-M2, T4-M1, P3-M2, P4-M1, CHIN1, CHIN2, HR, EKG, Legs, PFLOW, SNOR, FLOW, CFLOW, Tidal Volume, THOR, ABDO, SpO2, PLTH, CPRESS, ETCO2 Wave, ETCO2, pH Sleep Architecture Sleep Stages Time at Lights Off 10:03:56 PM STAGES Time (min.) TST (%) Time at Lights On 5:11:26 AM Wake 202.0 -- Total Recording Time (TRT) 429.00 min. N1 48.5 22 Total Sleep Period (TSP) 406.5 min. N2 161.0 71 Total Sleep Time (TST) 225.5min. N3 0.5 0 Awake Time 203.5 min. REM 15.5 7 Wake after Sleep Onset 183.0 min. Sleep Efficiency (SE) 53 % Sleep Onset Latency (QAMAR) 19.0 min. Number of Stage 1 Shifts None Awakenings 38 Stage Changes 123 Number of REM periods 2 REM 15.5 7 REM Latency 323.5 min. NREM 210.0 93 Body Position Analysis Supine Right Left Side Prone Vertical Total Sleep Time (min.) 99.2 0.0 156.4 156.41 0.0 15.3 Total Sleep Time (%) 31% 0% 69% 69 0% N/A% Total Sleep Time REM (min.) 15.5 0.0 0.0 None 0.0 0.0 Total Sleep Time NREM (min.) 53.6 0.0 156.4 None 0.0 0.0 Intermittent Wake (min.) 30.1 0.0 156.5 None 0.0 15.3 Total Sleep Period (%) 24% None None None None None Arousals Myoclonus (PLM) * Events Count Index Events Count Index Spontaneous 44 12 Events Awake (PLMW) 0 0.0 Respiratory 5 1.3 Events Asleep w/ Arousal (PLMA) 47 12.5 PLM 47 13 Events Asleep w/o Arousal (PLMS) 370 98.4 Snoring 14 4 Total Asleep 417 111.0 Total 111 30 Total 417 59 Respiratory Analysis * CA OA MA CH H RERA Total Count 0 3 0 0 11 0 14 Index 0.0 0.8 0.0 0 2.9 0 3.7 Mean Duration 0.0 21.8 0.0 0.00 18.2 0.0 19.0 Longest Duration 0.0 23.8 0.0 0.00 0.0 0.0 27.9 Respiratory Event Summary Total Supine ~Supine Right Left Prone REM NREM Apneas Count 3 3 0 N/A 0 N/A 1 2 Index 0.8 3 0 N/A 0.0 N/A 4 1 Hypopneas (4% Desat) Count 11 10 1 N/A 1 N/A 5 6 Index 2.9 8.7 0 N/A 0.4 N/A 19.4 1.7 Apneas & All Hypopneas Count 14 13 1 N/A 1 N/A 6 8 Index 3.7 11 0 N/A 0 N/A 23.2 2.3 Respiratory Events (Land Acquisition Specialist+All Hyp+RERA) Count 14 13 1 N/A 1 N/A 6 8 Index 3.7 11 0 N/A 0.4 N/A 23.2 2.3 Respiratory Related Arousal Count 5 13 0 N/A 0 N/A 0 5 Index 1.3 4 0 N/A 0 N/A 0 1 Snoring Analysis Supine Right Left Prone REM NREM Total Snore duration 23.9 min Snores count 556 N/A 802 N/A 157 1,201 1,358 Snore mean duration 1.1 Sec Snores index 483 N/A 308 N/A 607.7 343.1 361.3 TST with snoring (%) 10.6% SpO2 Analysis Total REM NREM Awake <50% 0.0 min. 0.0 min. 0.0 min. 0.0 min. 51 - 60% 0.0 min. 0.0 min. 0.0 min. 0.0 min. 61 - 70% 0.0 min. 0.0 min. 0.0 min. 0.0 min. 71 - 80% 0.2 min. 0.0 min. 0.0 min. 0.2 min. 81 - 90% 386.4 min. 13.6 min. 198.8 min. 173.9 min. 91 - 100% 34.0 min. 1.9 min. 8.7 min. 23.4 min. Average 88 86 88 89 Minimum SpO2 73 81 84 73 Desaturation Event Index 3.2 19.4 5.1 0.0 # Desat. Events below 89% 20 5 15 0 Time(%) with Saturation below 89% 59.1 2.8 33.8 22.5 Time(min.) with Saturation below 89% 248.3 11.8 142.1 94.4 Heart Rate Analysis End Tidal CO2 Analysis Min (bpm) Max (bpm) Average (bpm) TSP (mins) % of TSP Awake 36 225 74 Above 55 mmHg 0.0 0.0 NREM 58 134 70 50-55 mmHg 0.0 0.0 REM 57 74 66 45-50 mmHg 116.3 51.6 Overall 57 134 70 40-45 mmHg 7.4 3.3 35-40 mmHg 48.9 21.7 30-35 mmHg 45.4 20.1 Average ETCO2 0.1 Supplemental O2 Values Minimum O2 level: None Value Start Time End Time Casing Finisher And Stuffer Comments PSG Study slept in the left, and supine positions. No cardiac arrhythmia or PLM's noted. No bruxism noted. Snoring was noted and scored as a 2 on a scale of 1 through 5. (0=no snoring, 5=snoring loud enough to be heard through a closed door or down the [address] way) awoke to use the restroom one time during the night. Mr. Mendez stated, I did not sleep as well as I do when I am in my own bed. The final report will be interpreted and signed by a sleep physician. The completed physician report will then be placed in the patient medical record. Patient did not sleep well, he was up once for the restroom. Low oxygen saturations were seen throughout the study. Oxygen was not used for this test. Therapy (cm H2O) 0 TIB (min.) 427.5 TST (min.) 225.5 Sleep Onset (min.) 19.0 REM Onset From Sleep (min.) 323.5 Sleep Efficiency % 53 Wakefulness (%) 47 Wakefulness (min.) 203.5 NREM 1 (%) 22 NREM 1 (min.) 48.5 NREM 2 (%) 71 NREM 2 (min.) 161.0 NREM 3 (%) 0 NREM 3 (min.) 0.5 REM (%) 7 REM (min.) 15.5 # Arousals 111 Arousal Index 30 # Snore 1,358 Snore Index 361.3 AHI 3.7 AHI Supine 11 AHI Non-Supine 0 NREM AHI 2.3 REM AHI 23.2 RDI 3.7 # Obstructive Apnea 3 # Central Apnea 0 # Mixed Apnea 0 # Hypopneas 11 RERAs 0 Total Respiratory Events 14 Time Below SpO2 89% (min.) 153.9 Mean NREM SpO2 (%) 88 Mean REM SpO2 (%) 86 Mean Sleep SpO2 (%) 88 Min NREM SpO2 (%) 84 Min REM SpO2 (%) 81 Position Supine (min.) 99.2 Position Non-supine (min.) 156.4 LM Index Sleep 111.0 LM Index NREM 118.0 LM Index REM 15.5 Mean Heart Rate (bpm) 70 Min Heart Rate (bpm) 57
--- NOTE | 2017-10-31 09:13 | POLYSOMNOGRAPH REPORT ---
CLINICAL DATA: This is a 77-year-old male with BMI of 31.66, referred by Cammy Guillen and Dr. Segura. The patient was found to have nocturnal hypoxemia recently. He sleeps elevated due to coughing. His [place] sleepiness score is 4/24. SLEEP ARCHITECTURE: Total sleep period was 406.5 minutes. Total sleep time was 225 minutes divided between 210 minutes of non-REM sleep and 15.5 minutes of REM sleep. Sleep onset latency was 19 minutes. REM latency was delayed at 323.5 minutes. Sleep efficiency was 53%, which was reduced. Wake after sleep onset was elevated at 183 minutes. Sleep consisted of stage N1 of 22%, stage N2 of 71%, and REM 7%. AROUSAL DATA: 111 arousals recorded for an index of 30 per hour. 44 were due to spontaneous arousals. 47 were due to PLM events. PLM DATA: Severe PLMD was noted. There were 417 limb movements during sleep noted for an index of 111 per hour with arousal index of 12.5 per hour. RESPIRATORY DATA: There was no evidence of clinically significant sleep apnea seen. The AHI was 3.7. There were 3 obstructive apneic episodes. The longest duration of apnea was 22.8 seconds. There were 11 hypopneic episodes with a mean duration of 18.2 seconds. OXIMETRY DATA: Nocturnal hypoxemia was seen. Oxygen duke was 81% during REM. The mean saturation was 88%. Time below 89% was 248.3 minutes. EKG: Heart rates ranged from 57 to 134 beats per minute. No arrhythmias were noted. ULTIMATE HOOPS SCOREBOARD OPERATOR'S COMMENTS: The patient slept in the left and supine positions. Snoring was mild, rated 2 on a scale of 1-5. He did not sleep very well. Oxygen desaturation was seen throughout the night along with frequent leg movements. IMPRESSION: 1. No evidence of clinically significant sleep apnea was seen. 2. Nocturnal hypoxemia was demonstrated. 3. Severe periodic limb movement disorder was noted. RECOMMENDATIONS: The patient may benefit from nocturnal oxygen. Evaluation for RLS/PLMD and appropriate treatment may be of benefit. There was nothing on his current sleep study to suggest that CPAP will be needed. [facility]
== END | disposition home or self-care (01) ==
LOC: C.NEUR 21:00
PROVIDERS: ATTEND Nurse Practitioner Family
DX: J44.9 Chronic obstructive pulmonary disease, unspecified (principal); G47.34 Idiopathic sleep related nonobstructive alveolar hypoventilation; G47.61 Periodic limb movement disorder

== ENCOUNTER → 2017-12-04 | Outpatient (CLI) | payer OTHER ==
[2017-12-04 14:47] LABS: ALKALINE PHOSPHATASE 57 U/L (45-117); ALT/SGPT 43 U/L (12-78); AST/SGOT 23 U/L (15-37); TOTAL PROTEIN 6.8 gm/dl (6.4-8.2)
== END | disposition home or self-care (01) ==
LOC: C.LAB 13:46
PROVIDERS: ATTEND Nurse Practitioner Family
DX: J44.9 Chronic obstructive pulmonary disease, unspecified (principal); G47.34 Idiopathic sleep related nonobstructive alveolar hypoventilation; R69 Illness, unspecified

== ENCOUNTER 2023-03-16 13:14 | Inpatient (IN) ==
[2023-03-16] MEDS ORDERED: ALBUT/IPRATROP 3MG/0.5MG NEB 3 ML VIAL NEB STA (13:36)
[2023-03-16] MEDS ORDERED: methylPREDNISolone 125 MG/2 ML VIAL IV STA (13:36)
[2023-03-16 13:38] LABS: Base Excess VBG 6.7 mEq/L; HCO3 VBG 35 mmol/L; Oxygen Saturation VBG < 60.0 %; PCO2 VBG 63 mmHg (38-50); PO2 VBG 31 mmHg; pH VBG 7.35 (7.36-7.41)
--- NOTE | 2023-03-16 13:41 | XRay Report ---
SINGLE VIEW CHEST CLINICAL HISTORY: Atypical chest pain FINDINGS: 2 AP, portable, upright chest radiographs are compared to study dated 03/31/2017. The heart is mildly enlarged noting atherosclerotic calcification of the thoracic aorta. The pulmonary vasculat ure is not congested. Emphysema and chronic interstitial thickening similar to previous. There are bi basilar airspace opacities. No large pleural effusion or Pneumothorax is seen. The skeletal structure s are osteopenic. The bony thorax is grossly intact. IMPRESSION: 1. Cardiomegaly and emphysema without radiographic evidence of congestive failure. 2. Bibasilar airspace opacities could represent scarring/atelectasis versus pneumonia/aspiration pneu monitis. Clinical correlation will be required and radiographic follow-up to resolution is recommende d. ACT 112: Negative or not required by law. Electronically signed by: William Morgan M.D. 03/16/2023 1:39 PM
[2023-03-16 13:45] LABS: Hematocrit (blood only) 46.4 % (42.0-52.0); Hemoglobin 15.4 g/dl (14.0-18.0); Mean Corpuscular Hemoglobin 29.1 pg (25.0-34.0); Mean Corpuscular Hgb Conc 33.2 g/dL (32.0-36.0); Mean Corpuscular Volume 87.5 fL (80.0-100.0); Mean Platelet Volume 9.9 fL (9.4-12.4); Platelet Count 192 K/uL (130-400); RDW Standard Deviation 44.4 fL (36.4-46.3); White Blood Count 12.03 K/ul (4.8-10.8)
[2023-03-16 14:02] LABS: Basophils # (auto) 0.03 K/uL (0-0.2); Basophils % (auto) 0.2 %; Eosinophils # (auto) 0.08 K/uL (0-0.50); Eosinophils % (auto) 0.7 %; Immature Granulocytes # (auto) 0.07 K/uL (0.01-0.20); Immature Granulocytes % (auto) 0.6 %; Lymphocytes # (auto) 0.52 K/uL (1.2-3.4); Lymphocytes % (auto) 4.3 %; Monocytes % (auto) 0.8 %; Neutrophils # (auto) 11.23 K/uL (1.40-6.50); Neutrophils % (auto) 93.4 %
[2023-03-16 14:08] LABS: INR 1.1 (0.9-1.1); Partial Thromboplastin Ratio 0.7
[2023-03-16 14:22] LABS: Calcium 9.3 mg/dl (8.6-10.3); Potassium 3.4 mmol/L (3.5-5.1); Troponin I High Sensitivity 6.9 pg/ml (0-20)
[2023-03-16 14:24] LABS: Influenza A virus by PCR Negative (Neg); Influenza B virus by PCR Negative (Neg); RSV by PCR Negative (Neg); SARS CoV2 RNA(COVID-19) Ceph NEGATIVE (Negative)
--- NOTE | 2023-03-16 14:24 | Emergency Department Note ---
History of Present Illness General Chief Complaint: Shortness of Breath/Dyspnea Stated Complaint: SOB Time Seen by Provider: 03/16/23 13:18 History of Present Illness Provider Complaint: shortness of breath Onset (ago): hour(s) (1) Severity: severe Consistency/Duration: + progressively worsening Relieved By: + oxygen and + medication Exacerbated By: + lying flat, + exertion and + coughing Known history of: COPD and congestive heart failure Associated symptoms: + cough, + wheezing, + orthopnea and + chest congestion; no fever or no sputum production Treatment prior to arrival: oxygen, bronchodilator (1 DuoNeb), NIPPV (CPAP at 10), nitroglycerin (2 sublingual nitroglycerin.) and other (Zofran 4 mg) HPI Narrative: Patient was initially hypertensive with systolic blood pressure around 200 and had rales bilaterally per EMS. Related Data Home oxygen amount: as needed at night Home Medications Medication Instructions Recorded Confirmed Type albuterol sulfate 90 mcg/actuation 2 puff inhalation QID PRN SHORT OF 08/12/19 03/16/23 History aerosol inhaler (Proventil HFA) BREATH aspirin 81 mg tablet,delayed 81 mg PO QPM 08/12/19 03/16/23 History release atenolol 50 mg tablet 25 mg PO BID 08/12/19 03/16/23 History betamethasone dipropionate 0.05 % 1 applic topical DAILY PRN Dry Skin 08/12/19 03/16/23 History topical cream cholecalciferol (vitamin D3) 50 2,000 unit PO QAM 08/12/19 03/16/23 History mcg (2,000 unit) tablet (Vitamin D3) coQ10 (ubiquinol) 100 mg capsule 100 mg PO QAM 08/12/19 03/16/23 History cyanocobalamin (vitamin B-12) 500 500 mcg PO QPM 08/12/19 03/16/23 History mcg tablet fluocinolone 0.025 % topical cream 1 applic topical BID PRN Dry Skin 08/12/19 03/16/23 History hydroxyzine HCl 10 mg tablet 20 mg PO HS PRN Itching 08/12/19 03/16/23 History iron,carbonyl 65 mg-vitamin C 125 1 tab PO 3XWK 08/12/19 03/16/23 History mg tablet,delayed release (Vitron-C) ketotifen fumarate 0.025 % (0.035 1 drp ophthalmic (eye) Q12H PRN 08/12/19 03/16/23 History %) eye drops (Zaditor) ITCHING EYES lactobacillus combination no.4 3 3,000 mmu cells PO QPM 08/12/19 03/16/23 History billion cell capsule (Probiotic) levothyroxine 75 mcg tablet 75 mcg PO DAILYBB 08/12/19 03/16/23 History lorazepam 1 mg tablet (Ativan) 0.5 mg PO BID PRN Anxiety 08/12/19 03/16/23 History roflumilast 500 mcg tablet 500 mcg PO QAM 08/12/19 03/16/23 History (Daliresp) simvastatin 40 mg tablet 40 mg PO HS 08/12/19 03/16/23 History vit C 50 mg-E 15 unit-zinc cit 4.5 1 tab PO QAM 08/12/19 03/16/23 History mg-lutein 2.5 mg-zeaxan chew tablet ([facility]) wheat dextrin 3 gram/3.5 gram oral 1 packet PO QAM 08/12/19 03/16/23 History powder packet (Benefiber Clear Sugar Free(dextrin)) cetirizine 10 mg tablet (Zyrtec) 10 mg PO QAM PRN Allergy Symptoms 02/01/21 03/16/23 History chlorthalidone 25 mg tablet 12.5 mg PO DAILY 02/01/21 03/16/23 History finasteride 5 mg tablet (Proscar) 5 mg PO QPM 02/01/21 03/16/23 History fluticasone fur. 100 mcg-umeclid 1 inh inhalation QAM 02/01/21 03/16/23 History 62.5 mcg-vilant 25 mcg inhalat.powder (Trelegy Ellipta) sertraline 100 mg tablet (Zoloft) 100 mg PO QAM 02/01/21 03/16/23 History tamsulosin 0.4 mg capsule (Flomax) 0.4 mg PO QPM 02/01/21 03/16/23 History acetaminophen 650 mg 650 mg PO Q8H PRN Pain 03/16/23 03/16/23 History tablet,extended release albuterol sulfate 2.5 mg/3 mL 2.5 mg inhalation Q4H PRN 03/16/23 03/16/23 History (0.083 %) solution for nebulization Shortness Of Breath Or Wheezing ammonium lactate 12 % topical cream 1 applic topical DAILY PRN Dry Skin 03/16/23 03/16/23 History ezetimibe 10 mg tablet 10 mg PO DAILY 03/16/23 03/16/23 History hydrocodone-homatropine 5 mg-1.5 5 ml PO Q6H PRN Cough 03/16/23 03/16/23 History mg/5 mL oral syrup metronidazole 0.75 % topical gel 1 applic topical DAILY PRN Skin 03/16/23 History Irritation mupirocin 2 % topical ointment 1 applic topical BID PRN Skin 03/16/23 03/16/23 History Irritation naphazoline 0.29199 %-pheniramine 1 drp OPB UD 03/16/23 03/16/23 History 0.315 % eye drops nystatin 100,000 unit/gram topical 1 applic topical TID PRN Skin 03/16/23 03/16/23 History powder Irritation potassium chloride 10 mEq 20 meq PO .DAILY WITH TE MEAL 03/16/23 03/16/23 History tablet,extended release(part/cryst) triamcinolone acetonide 0.1 % 1 applic topical BID PRN Rash 03/16/23 03/16/23 History topical ointment Allergies Allergy/AdvReac Type Severity Reaction Status Date / Time bacitracin Allergy Mild Rash Verified 03/16/23 15:27 neomycin Allergy Mild Rash Verified 03/16/23 15:27 polymyxin B Allergy Mild Rash Verified 03/16/23 15:27 Sulfa (Sulfonamide Allergy Mild Rash Verified 03/16/23 15:27 Antibiotics) Past Med/Surg History Medical History Anemia Anxiety and depression BPH (benign prostatic hyperplasia) Cardiac murmur echo 1-2 years ago [facility] Chronic obstructive pulmonary disease Chronic pruritus idiopathic; reason for [place] Degenerative disc disease GERD (gastroesophageal reflux disease) History of paroxysmal supraventricular tachycardia follows with Ramesh Ornelas PA-C Hyperlipidemia Hypertension Hypothyroidism Macular degeneration On home oxygen therapy 2L O2 AT HS Osteoarthritis Skin cancer removed from left arm Surgical History History of AAA (abdominal aortic aneurysm) repair 1993 [facility] History of cardiac cath NO STENTS (15 YEARS AGO?) History of cataract surgery RT History of colonoscopy History of cystoscopy History of tonsillectomy History of tooth extraction Hx of transurethral resection of prostate Family History Other No significant family history Social History Smoking Status: Former smoker Second Hand Exposure: Yes ( used to smoke); Do You Dip or Chew Tobacco: No; Hx Alcohol Use: Yes Hx Substance Use: No Preferred Language: Italian Communication Ability: Effective Tuber Helper Required: No Beliefs That Will Affect Care: None Current Living Situation: Spouse Feels Safe at Home: Yes Assistive Devices: Denture - Upper, Denture - Lower, Glasses and Oxygen - at Night Physical Exam Vital Signs: Vital Signs - 24 hr 03/16/23 13:31 03/16/23 13:31 03/16/23 13:31 Temperature 37.0 C Temperature Source Oral Pulse Rate 97 H Pulse Rate [Apical ] Pulse Rhythm Pulse Rhythm [Apic al] Pulse Strength [Ap ical] Respiratory Rate 32 H Respiratory Effort / Characteristics Accessory Muscle U se Respiratory Depth Shallow Deep Respiratory Patter n Regular Blood Pressure 141/88 H Blood Pressure [Ri ght Arm] Blood Pressure Paradise n 105 Blood Pressure Paradise n [Right Arm] Blood Pressure Pos ition [Right Arm] Pulse Oximetry 97 95 Oxygen Delivery Me thod Oxymask Oxymask Oxymask Oxygen Flow Rate 14 14 14 Sepsis Recent Feve r Within 48 Hours No Sepsis New/Unexpla ined Change in Men dean Status No Sepsis Action Take n by Nursing No Action Required 03/16/23 13:31 03/16/23 13:31 03/16/23 14:00 Temperature 37.0 C Temperature Source Oral Pulse Rate Pulse Rate [Apical ] 96 H Pulse Rhythm Pulse Rhythm [Apic al] Pulse Strength [Ap ical] Respiratory Rate 32 H 32 H Respiratory Effort / Characteristics Non-Labored Non-Labored Respiratory Depth Normal Normal Respiratory Patter n Blood Pressure Blood Pressure [Ri ght Arm] 151/66 H Blood Pressure Paradise n Blood Pressure Paradise n [Right Arm] 94 Blood Pressure Pos ition [Right Arm] Pulse Oximetry 95 95 97 Oxygen Delivery Me thod Oxymask Oxymask Oxymask Oxygen Flow Rate 14 14 14 Sepsis Recent Feve r Within 48 Hours Sepsis New/Unexpla ined Change in Men dean Status Sepsis Action Take n by Nursing 03/16/23 14:10 03/16/23 14:14 03/16/23 14:17 Temperature Temperature Source Pulse Rate 96 H Pulse Rate [Apical ] 94 H 98 H Pulse Rhythm Pulse Rhythm [Apic al] Pulse Strength [Ap ical] Respiratory Rate 30 H 26 H Respiratory Effort / Characteristics Non-Labored Respiratory Depth Normal Respiratory Patter n Blood Pressure Blood Pressure [Ri ght Arm] 151/66 H Blood Pressure Paradise n Blood Pressure Paradise n [Right Arm] 94 Blood Pressure Pos ition [Right Arm] Pulse Oximetry 96 95 Oxygen Delivery Me thod Oxymask Oxymask Oxygen Flow Rate 10 4 Sepsis Recent Feve r Within 48 Hours Sepsis New/Unexpla ined Change in Men dean Status Sepsis Action Take n by Nursing 03/16/23 15:51 03/16/23 15:52 03/16/23 17:14 Temperature Temperature Source Pulse Rate 84 Pulse Rate [Apical ] 77 Pulse Rhythm Regular Pulse Rhythm [Apic al] Regular Pulse Strength [Ap ical] Normal Respiratory Rate 23 23 Respiratory Effort / Characteristics Non-Labored Sponta neous Respiratory Depth Normal Respiratory Patter n Regular Blood Pressure Blood Pressure [Ri ght Arm] 132/64 Blood Pressure Paradise n Blood Pressure Paradise n [Right Arm] 86 Blood Pressure Pos ition [Right Arm] Semi-fowlers Pulse Oximetry 94 94 Oxygen Delivery Me thod Oxymask Oxymask Oxymask Oxygen Flow Rate 4 4 4 Sepsis Recent Feve r Within 48 Hours Sepsis New/Unexpla ined Change in Men dean Status Sepsis Action Take n by Nursing Physical Exam: Physical Exam HENT: Exam performed. - Head: Normocephalic and atraumatic. NECK: Normal range of motion. No tracheal deviation and normal range of motion present. CV: Normal rate, regular rhythm, normal heart sounds and intact distal pulses. Palpable radial pulses bue. PULM/CHEST: Respiratory distress on CPAP inspiratory rales bilaterally faint expiratory wheezes. ABD: The abdomen is soft. Rectus diastases. There is no tenderness. There is no rebound, no guarding NEURO: Motor and sensation grossly intact. SKIN: Skin is warm and dry. He is not diaphoretic. Course Course 1318: The patient was evaluated in room A1. A complete history and physical exam was performed Cardiac monitoring: An order was placed for continuous cardiac monitoring. The monitor shows a rate of 100 with sinus rhythm interpreted by me Patient was transition from CPAP to oxime mask. 1458: Vital signs stable. Patient has been able to be transition from 15 L to 4 L supplemental oxygen. Labs show mild leukocytosis with white blood cell count 12. VBG shows venous pH of 7.35 venous PCO2 of 63. Troponin negative. BNP mildly elevated 111. COVID influenza and RSV negative. Chest x-ray shows mild cardiomegaly and pulmonary edema. Patient treated with Lasix DuoNeb and Solu- Medrol in the emergency department. Patient will be admitted to Dr. Gracie Lancaster hospitalist team. Administered Medications Discontinued Medications Albuterol (Albut/Ipratrop 3mg/0.5mg Neb 3 Ml Vial) 3 ml NEB NOW STA; Protocol Stop: 03/16/23 13:37 Last Admin: 03/16/23 13:45 Dose: 3 ml Documented By: ES Furosemide (Furosemide 40 Mg/4 Ml Vial) 40 mg IV ONE ONE Stop: 03/16/23 14:27 Last Admin: 03/16/23 14:49 Dose: 40 mg Documented By: AB Methylprednisolone (Methylprednisolone 125 Mg/2 Ml Vial) 125 mg IV NOW STA Stop: 03/16/23 13:37 Last Admin: 03/16/23 13:45 Dose: 125 mg Documented By: ES Potassium Chloride (Potassium Chloride Crtab 20 Meq Tabcr) 40 meq PO NOW STA Stop: 03/16/23 14:50 Last Admin: 03/16/23 14:57 Dose: 40 meq Documented By: AB Medical Decision Making Laboratory Data Attestation: I reviewed the patient's lab results. 03/16/23 13:25 03/16/23 13:25 Lab Results 03/16/23 03/16/23 03/16/23 Range/Units 13:25 13:25 13:25 WBC 12.03 H (4.8-10.8) K/ul RBC 5.30 (4.70-6.10) M/uL Hgb 15.4 (14.0-18.0) g/dl Hct 46.4 (42.0-52.0) % MCV 87.5 (80.0-100.0) fL MCH 29.1 (25.0-34.0) pg MCHC 33.2 (32.0-36.0) g/dL RDW Std Deviation 44.4 (36.4-46.3) fL RDW Coeff of Madyson 14.0 (11.5-14.5) % Plt Count 192 (130-400) K/uL MPV 9.9 (9.4-12.4) fL Immature Gran % (Auto) 0.6 % Neut % (Auto) 93.4 % Lymph % (Auto) 4.3 % Sherman % (Auto) 0.8 % Eos % (Auto) 0.7 % Baso % (Auto) 0.2 % Neut # (Auto) 11.23 H (1.40-6.50) K/uL Lymph # (Auto) 0.52 L (1.2-3.4) K/uL Sherman # (Auto) 0.10 L (0.11-0.59) K/uL Eos # (Auto) 0.08 (0-0.50) K/uL Baso # (Auto) 0.03 (0-0.2) K/uL Immature Gran # (Auto) 0.07 (0.01-0.20) K/uL PT 12.0 (9.0-12.0) Seconds INR 1.1 (0.9-1.1) APTT 21.0 (21.0-31.0) Seconds PTT Ratio 0.7 VBG pH 7.35 L (7.36-7.41) VBG pCO2 63 H (38-50) mmHg VBG pO2 31 mmHg VBG HCO3 35 mmol/L VBG O2 Saturation < 60.0 % VBG Base Excess 6.7 mEq/L Sodium (136-145) mmol/L Potassium (3.5-5.1) mmol/L Chloride (98-107) mmol/L Carbon Dioxide (21-32) mmol/L Anion Gap (3-11) BUN (6-23) mg/dl Creatinine (0.6-1.4) mg/dl Est Cr Clr Drug Dosing ml/min Est GFR ( Amer) ml/min Est GFR (Non-Af Amer) ml/min BUN/Creatinine Ratio (10-20) Glucose (70-99(Fasting)) mg/dl Calcium (8.6-10.3) mg/dl Magnesium (1.7-2.4) mg/dl Troponin I High Sens (0-20) pg/ml B-Natriuretic Peptide (0-100) pg/ml Lipase (11-82) U/L Procalcitonin (0-0.5) ng/ml Adenovirus (PCR) (NotDetected) B. pertussis DNA (PCR) (NotDetected) B.parapertussis DNA PCR (NotDetected) C. pneumoniae DNA (PCR) (NotDetected) Coronavirus OC43 (PCR) (NotDetected) Coronavirus HKU1 (PCR) (NotDetected) Coronavirus 229E (PCR) (NotDetected) SARS-CoV-2 (PCR) (Negative) Coronavirus NL63 (PCR) (NotDetected) Human Metapneumovir PCR (NotDetected) Influenza Type A (PCR) (Neg) Influenza Type B (PCR) (Neg) M. pneumoniae (PCR) (NotDetected) Parainfluenza 1 (PCR) (NotDetected) Parainfluenza 2 (PCR) (NotDetected) Parainfluenza 3 (PCR) (NotDetected) Parainfluenza 4 (PCR) (NotDetected) RSV (RT-PCR) (Neg) RSV (PCR) (NotDetected) Entero/Rhino (PCR) (NotDetected) 03/16/23 03/16/23 03/16/23 Range/Units 13:25 13:25 13:25 WBC (4.8-10.8) K/ul RBC (4.70-6.10) M/uL Hgb (14.0-18.0) g/dl Hct (42.0-52.0) % MCV (80.0-100.0) fL MCH (25.0-34.0) pg MCHC (32.0-36.0) g/dL RDW Std Deviation (36.4-46.3) fL RDW Coeff of Madyson (11.5-14.5) % Plt Count (130-400) K/uL MPV (9.4-12.4) fL Immature Gran % (Auto) % Neut % (Auto) % Lymph % (Auto) % Sherman % (Auto) % Eos % (Auto) % Baso % (Auto) % Neut # (Auto) (1.40-6.50) K/uL Lymph # (Auto) (1.2-3.4) K/uL Sherman # (Auto) (0.11-0.59) K/uL Eos # (Auto) (0-0.50) K/uL Baso # (Auto) (0-0.2) K/uL Immature Gran # (Auto) (0.01-0.20) K/uL PT (9.0-12.0) Seconds INR (0.9-1.1) APTT (21.0-31.0) Seconds PTT Ratio VBG pH (7.36-7.41) VBG pCO2 (38-50) mmHg VBG pO2 mmHg VBG HCO3 mmol/L VBG O2 Saturation % VBG Base Excess mEq/L Sodium 142 (136-145) mmol/L Potassium 3.4 L (3.5-5.1) mmol/L Chloride 101 (98-107) mmol/L Carbon Dioxide 31 (21-32) mmol/L Anion Gap 10 (3-11) BUN 15 (6-23) mg/dl Creatinine 0.91 (0.6-1.4) mg/dl Est Cr Clr Drug Dosing 86.8 ml/min Est GFR ( Amer) 91.3 ml/min Est GFR (Non-Af Amer) 78.8 ml/min BUN/Creatinine Ratio 16.5 (10-20) Glucose 112 H (70-99(Fasting)) mg/dl Calcium 9.3 (8.6-10.3) mg/dl Magnesium 1.8 (1.7-2.4) mg/dl Troponin I High Sens 6.9 (0-20) pg/ml B-Natriuretic Peptide 111 H (0-100) pg/ml Lipase 21 (11-82) U/L Procalcitonin (0-0.5) ng/ml Adenovirus (PCR) (NotDetected) B. pertussis DNA (PCR) (NotDetected) B.parapertussis DNA PCR (NotDetected) C. pneumoniae DNA (PCR) (NotDetected) Coronavirus OC43 (PCR) (NotDetected) Coronavirus HKU1 (PCR) (NotDetected) Coronavirus 229E (PCR) (NotDetected) SARS-CoV-2 (PCR) NEGATIVE (Negative) Coronavirus NL63 (PCR) (NotDetected) Human Metapneumovir PCR (NotDetected) Influenza Type A (PCR) Negative (Neg) Influenza Type B (PCR) Negative (Neg) M. pneumoniae (PCR) (NotDetected) Parainfluenza 1 (PCR) (NotDetected) Parainfluenza 2 (PCR) (NotDetected) Parainfluenza 3 (PCR) (NotDetected) Parainfluenza 4 (PCR) (NotDetected) RSV (RT-PCR) Negative (Neg) RSV (PCR) (NotDetected) Entero/Rhino (PCR) (NotDetected) 03/16/23 03/16/23 Range/Units 13:28 14:59 WBC (4.8-10.8) K/ul RBC (4.70-6.10) M/uL Hgb (14.0-18.0) g/dl Hct (42.0-52.0) % MCV (80.0-100.0) fL MCH (25.0-34.0) pg MCHC (32.0-36.0) g/dL RDW Std Deviation (36.4-46.3) fL RDW Coeff of Madyson (11.5-14.5) % Plt Count (130-400) K/uL MPV (9.4-12.4) fL Immature Gran % (Auto) % Neut % (Auto) % Lymph % (Auto) % Sherman % (Auto) % Eos % (Auto) % Baso % (Auto) % Neut # (Auto) (1.40-6.50) K/uL Lymph # (Auto) (1.2-3.4) K/uL Sherman # (Auto) (0.11-0.59) K/uL Eos # (Auto) (0-0.50) K/uL Baso # (Auto) (0-0.2) K/uL Immature Gran # (Auto) (0.01-0.20) K/uL PT (9.0-12.0) Seconds INR (0.9-1.1) APTT (21.0-31.0) Seconds PTT Ratio VBG pH (7.36-7.41) VBG pCO2 (38-50) mmHg VBG pO2 mmHg VBG HCO3 mmol/L VBG O2 Saturation % VBG Base Excess mEq/L Sodium (136-145) mmol/L Potassium (3.5-5.1) mmol/L Chloride (98-107) mmol/L Carbon Dioxide (21-32) mmol/L Anion Gap (3-11) BUN (6-23) mg/dl Creatinine (0.6-1.4) mg/dl Est Cr Clr Drug Dosing ml/min Est GFR ( Amer) ml/min Est GFR (Non-Af Amer) ml/min BUN/Creatinine Ratio (10-20) Glucose (70-99(Fasting)) mg/dl Calcium (8.6-10.3) mg/dl Magnesium (1.7-2.4) mg/dl Troponin I High Sens (0-20) pg/ml B-Natriuretic Peptide (0-100) pg/ml Lipase (11-82) U/L Procalcitonin 0.18 (0-0.5) ng/ml Adenovirus (PCR) Not Detected (NotDetected) B. pertussis DNA (PCR) Not Detected (NotDetected) B.parapertussis DNA PCR Not Detected (NotDetected) C. pneumoniae DNA (PCR) Not Detected (NotDetected) Coronavirus OC43 (PCR) Not Detected (NotDetected) Coronavirus HKU1 (PCR) Not Detected (NotDetected) Coronavirus 229E (PCR) Not Detected (NotDetected) SARS-CoV-2 (PCR) Not Detected (Negative) Coronavirus NL63 (PCR) Not Detected (NotDetected) Human Metapneumovir PCR Not Detected (NotDetected) Influenza Type A (PCR) Not Detected (Neg) Influenza Type B (PCR) Not Detected (Neg) M. pneumoniae (PCR) Not Detected (NotDetected) Parainfluenza 1 (PCR) Not Detected (NotDetected) Parainfluenza 2 (PCR) Not Detected (NotDetected) Parainfluenza 3 (PCR) Not Detected (NotDetected) Parainfluenza 4 (PCR) Not Detected (NotDetected) RSV (RT-PCR) (Neg) RSV (PCR) Not Detected (NotDetected) Entero/Rhino (PCR) Not Detected (NotDetected) Imaging Data Attestation: I personally reviewed and interpreted this imaging study as follows: My Impression: Mild cardiomegaly mild cephalization Radiologist's Impression: Chest X-Ray 03/16/23 13:20 SINGLE VIEW CHEST CLINICAL HISTORY: Atypical chest pain FINDINGS: 2 AP, portable, upright chest radiographs are compared to study dated 03/31/2017. The heart is mildly enlarged noting atherosclerotic calcification of the thoracic aorta. The pulmonary vasculature is not congested. Emphysema and chronic interstitial thickening similar to previous. There are bibasilar airspace opacities. No large pleural effusion or Pneumothorax is seen. The skeletal structures are osteopenic. The bony thorax is grossly intact. IMPRESSION: 1. Cardiomegaly and emphysema without radiographic evidence of congestive failure. 2. Bibasilar airspace opacities could represent scarring/atelectasis versus pneumonia/aspiration pneumonitis. Clinical correlation will be required and radiographic follow-up to resolution is recommended. ACT 112: Negative or not required by law. Electronically signed by: William Morgan M.D. 03/16/2023 1:39 PM ECG Data Attestation: I personally reviewed and interpreted this ECG as follows: Interpretation: Sinus tachycardia with rate of 104. [place] QRS and QTc intervals within normal limits. No ST elevation or ST depression. Baseline artifact and wander secondary to patient's respiratory distress. [facility] Narrative 1318: The patient was evaluated in room A1. A complete history and physical exam was performed Cardiac monitoring: An order was placed for continuous cardiac monitoring. The monitor shows a rate of 100 with sinus rhythm interpreted by me Patient was transition from CPAP to oxime mask. 1458: Vital signs stable. Patient has been able to be transition from 15 L to 4 L supplemental oxygen. Labs show mild leukocytosis with white blood cell count 12. VBG shows venous pH of 7.35 venous PCO2 of 63. Troponin negative. BNP mildly elevated 111. COVID influenza and RSV negative. Chest x-ray shows mild cardiomegaly and pulmonary edema. Patient treated with Lasix DuoNeb and Solu- Medrol in the emergency department. Patient will be admitted to Dr. Gracie Lancaster hospitalist team. Impression & Plan COPD (chronic obstructive pulmonary disease), Congestive heart failure Discharge Plan Visit Data Chief Complaint: Shortness of Breath/Dyspnea Stated Complaint: SOB ED Provider: Juan Caba Discharge Problem: COPD (chronic obstructive pulmonary disease), Congestive heart failure Patient Disposition: Admitted As Inpatient Discharge Instructions Interventions: ED Discharge Assessment Last Done: 03/16/23 17:14 Forms Stand Alone Forms: My [facility] Prescriptions Prescriptions: No Action ketotifen fumarate [Zaditor] 0.025 % (0.035 %) Drops 1 drp OPHTHALMIC (EYE) Q12H PRN (Reason: ITCHING EYES) aspirin 81 mg Tablet,Delayed Release (Dr/Ec) 81 mg PO QPM simvastatin 40 mg Tablet 40 mg PO HS levothyroxine 75 mcg Tablet 75 mcg PO DAILYBB cyanocobalamin (vitamin B-12) 500 mcg Tablet 500 mcg PO QPM betamethasone dipropionate 0.05 % Cream 1 applic TOPICAL DAILY PRN (Reason: Dry Skin) lorazepam [Ativan] 1 mg Tablet 0.5 mg PO BID PRN (Reason: Anxiety) albuterol sulfate [Proventil HFA] 90 mcg/actuation Hfa Aerosol Inhaler 2 puff INHALATION QID PRN (Reason: SHORT OF BREATH) hydroxyzine HCl 10 mg Tablet 20 mg PO HS PRN (Reason: Itching) atenolol 50 mg Tablet 25 mg PO BID Rx Instructions: 1/2 tablet twice daily fluocinolone 0.025 % Cream 1 applic TOPICAL BID PRN (Reason: Dry Skin) cholecalciferol (vitamin D3) [Vitamin D3] 2,000 unit Tablet 2,000 unit PO QAM Benefiber Clear SF (dextrin) 3 gram/3.5 gram Powder In Packet 1 packet PO QAM roflumilast [Daliresp] 500 mcg Tablet 500 mcg PO QAM coQ10 (ubiquinol) 100 mg Capsule 100 mg PO QAM Vitron-C 65 mg iron- 125 mg Tablet,Delayed Release (Dr/Ec) 1 tab PO [id number] Rx Instructions: take this med every Saturday/ Saturday/ Saturday Probiotic 3 billion cell Capsule 3,000 mmu cells PO QPM Ocuvite Eye Health 50 mg-15 unit- 4.5 mg-2.5 mg Tablet,Chewable 1 tab PO QAM cetirizine [Zyrtec] 10 mg Tablet 10 mg PO QAM PRN (Reason: Allergy Symptoms) sertraline [Zoloft] 100 mg Tablet 100 mg PO QAM chlorthalidone 25 mg Tablet 12.5 mg PO DAILY tamsulosin [Flomax] 0.4 mg Capsule 0.4 mg PO QPM Rx Instructions: with evening meal finasteride [Proscar] 5 mg Tablet 5 mg PO QPM Rx Instructions: with evening meal Trelegy Ellipta 100-62.5-25 mcg Blister With Device 1 inh INHALATION QAM acetaminophen 650 mg Tablet Extended Release 650 mg PO Q8H PRN (Reason: Pain) naphazoline-pheniramine 0.06020-3.315 % Drops 1 drp OPB UD hydrocodone-homatropine 5-1.5 mg/5 mL Syrup 5 ml PO Q6H PRN (Reason: Cough) metronidazole 0.75 % Gel 1 applic TOPICAL DAILY PRN (Reason: Skin Irritation) ezetimibe 10 mg Tablet 10 mg PO DAILY potassium chloride 10 mEq Tablet,Er Particles/Crystals 20 meq PO .DAILY WITH TE MEAL albuterol sulfate 2.5 mg /3 mL (0.083 %) Solution For Nebulization 2.5 mg INHALATION Q4H PRN (Reason: Shortness Of Breath Or Wheezing) nystatin 100,000 unit/gram Powder 1 applic TOPICAL TID PRN (Reason: Skin Irritation) triamcinolone acetonide [Aristocort] 0.1 % Ointment 1 applic TOPICAL BID PRN (Reason: Rash) ammonium lactate 12 % Cream 1 applic TOPICAL DAILY PRN (Reason: Dry Skin) mupirocin 2 % Ointment 1 applic TOPICAL BID PRN (Reason: Skin Irritation) Referrals Referrals: Tapan Kaye DO [Primary Care Provider] - COPD (chronic obstructive pulmonary disease) Qualifiers: COPD type: unspecified COPD Qualified Code(s): J44.9 - Chronic obstructive pulmonary disease, unspecified Congestive heart failure Qualifiers: Heart failure type: unspecified Heart failure chronicity: unspecified Qualified Code(s): I50.9 - Heart failure, unspecified
[2023-03-16 14:26] LABS: BUN Creatinine Ratio 16.5 (10-20); Creatinine Clr Calc Pharmacy 86.8 ml/min; Est GFR (African American) 91.3 ml/min; Est GFR (Non-African American) 78.8 ml/min
[2023-03-16] MEDS ORDERED: FUROSEMIDE 40 MG/4 ML VIAL IV ONE (14:26)
[2023-03-16] MEDS ORDERED: POTASSIUM CHLORIDE CRTAB 20 MEQ TABCR PO STA (14:49)
[2023-03-16] MEDS ORDERED: ACETAMINOPHEN 325 MG TAB PO PRN ×2 (14:51→17:26)
--- NOTE | 2023-03-16 15:06 | History & Physical Report ---
Date of Service March 16, 2023 Assessment & Plan (1) Acute respiratory failure with hypoxia: (2) COPD exacerbation: Plan: Acute resp. failure, hx of COPD,group D- likely COPD exacerbation, hx of CAD - poss. component of CHF Pt w/ weakness, and feeling "shaky" at home EMS called and reported SBP 200, gave nitro x2, duoneb, cpap In ED received Duoneb, solumedrol, IV lasix, able to go from 15L oxymask down to 4L in ED CXR 1. Cardiomegaly and emphysema without radiographic evidence of congestive failure. 2. Bibasilar airspace opacities could represent scarring/atelectasis versus pneumonia/aspiration pneumonitis. Clinical correlation will be required and radiographic follow-up to resolution is recommended. BNP 111 Initial trop negative- repeat elevated from previous but still normal - will repeat trop tonight ECG, monitor on tele, will check Echo For CAD, HTN, HLD - cont. ASA, statin, zetia, atenolol, chlorthalidone On physical exam pt appears euvolemic, for now will not continue any lasix, will re-assess tmrw Biofire negative for covid or flu Procal obtained - negative sputum cultx ordered Cont. home meds for COPD - Trelegy, Daliresp, - add duoneb, guaifenesin, solumedrol, flutter valve, IS Hypothyroidism - cont. home levothyroxine BPH - cont. finasteride, tamsulosin DVT ppx - heparin subq Dispo: PCU Code: DNR/DNI History of Present Illness Chief Complaint: Shortness of breath, hypoxia Primary Care Provider: Tapan Kaye DO Patient is an 82-year-old male with history of COPD, group D, chronic respiratory failure with hypoxia, (2 liters of oxygen at night), CAD, PVD, carotid disease, hypertension, AAA s/p repair, iron deficiency anemia, history of A-fib, dyslipidemia, hypothyroidism who presents with hypoxia, shortness of breath. Per patient and , patient has been feeling weak for past few days, this morning he was preparing breakfast and after breakfast he had to rest. He became shaky and his applied his oxygen. She also called 911. Per ER report, patient was hypotensive with systolic blood pressure of 200 when EMS arrived. He received nitroglycerin x2 sublingual, and DuoNeb. Supplemental oxygen was also applied, CPAP -> patient arrived on 15 L. Solu-Medrol was given in ED, and DuoNeb, as well as IV lasix and he was able to be weaned down to 4 to 5 L OxyMask. Currently patient is lying in bed, in no acute distress, on supplemental oxygen. Patient's is present at the bedside. He reports feeling fairly well right now. He denies any chest pain. He confirms the weakness and feeling shaky this morning. He cannot say if he felt short of breath, as he says he always feels short of breath. Not aware of any fevers or chills, stomach ache nausea vomiting diarrhea, feeling lightheaded or dizzy. Allergies Allergy/AdvReac Type Severity Reaction Status Date / Time bacitracin Allergy Mild Rash Verified 03/16/23 15:27 neomycin Allergy Mild Rash Verified 03/16/23 15:27 polymyxin B Allergy Mild Rash Verified 03/16/23 15:27 Sulfa (Sulfonamide Allergy Mild Rash Verified 03/16/23 15:27 Antibiotics) Home Medications Medication Instructions Recorded Confirmed Type albuterol sulfate 90 mcg/actuation 2 puff inhalation QID PRN SHORT OF 08/12/19 03/16/23 History aerosol inhaler (Proventil HFA) BREATH aspirin 81 mg tablet,delayed 81 mg PO QPM 08/12/19 03/16/23 History release atenolol 50 mg tablet 25 mg PO BID 08/12/19 03/16/23 History betamethasone dipropionate 0.05 % 1 applic topical DAILY PRN Dry Skin 08/12/19 03/16/23 History topical cream cholecalciferol (vitamin D3) 50 2,000 unit PO QAM 08/12/19 03/16/23 History mcg (2,000 unit) tablet (Vitamin D3) coQ10 (ubiquinol) 100 mg capsule 100 mg PO QAM 08/12/19 03/16/23 History cyanocobalamin (vitamin B-12) 500 500 mcg PO QPM 08/12/19 03/16/23 History mcg tablet fluocinolone 0.025 % topical cream 1 applic topical BID PRN Dry Skin 08/12/19 03/16/23 History hydroxyzine HCl 10 mg tablet 20 mg PO HS PRN Itching 08/12/19 03/16/23 History iron,carbonyl 65 mg-vitamin C 125 1 tab PO 3XWK 08/12/19 03/16/23 History mg tablet,delayed release (Vitron-C) ketotifen fumarate 0.025 % (0.035 1 drp ophthalmic (eye) Q12H PRN 08/12/19 03/16/23 History %) eye drops (Zaditor) ITCHING EYES lactobacillus combination no.4 3 3,000 mmu cells PO QPM 08/12/19 03/16/23 Hi story billion cell capsule (Probiotic) levothyroxine 75 mcg tablet 75 mcg PO DAILYBB 08/12/19 03/16/23 History lorazepam 1 mg tablet (Ativan) 0.5 mg PO BID PRN Anxiety 08/12/19 03/16/23 Histo ry roflumilast 500 mcg tablet 500 mcg PO QAM 08/12/19 03/16/23 History (Daliresp) simvastatin 40 mg tablet 40 mg PO HS 08/12/19 03/16/23 History vit C 50 mg-E 15 unit-zinc cit 4.5 1 tab PO QAM 08/12/19 03/16/23 History mg-lutein 2.5 mg-zeaxan chew tablet ([employer] Eye Yozio) wheat dextrin 3 gram/3.5 gram oral 1 packet PO QAM 08/12/19 03/16/23 History powder packet (Benefiber Clear Sugar Free(dextrin)) cetirizine 10 mg tablet (Zyrtec) 10 mg PO QAM PRN Allergy Symptoms 02/01/21 03/16/23 History chlorthalidone 25 mg tablet 12.5 mg PO DAILY 02/01/21 03/16/23 History finasteride 5 mg tablet (Proscar) 5 mg PO QPM 02/01/21 03/16/23 History fluticasone fur. 100 mcg-umeclid 1 inh inhalation QAM 02/01/21 03/16/23 History 62.5 mcg-vilant 25 mcg inhalat.powder (Trelegy Ellipta) sertraline 100 mg tablet (Zoloft) 100 mg PO QAM 02/01/21 03/16/23 History tamsulosin 0.4 mg capsule (Flomax) 0.4 mg PO QPM 02/01/21 03/16/23 History acetaminophen 650 mg 650 mg PO Q8H PRN Pain 03/16/23 03/16/23 History tablet,extended release albuterol sulfate 2.5 mg/3 mL 2.5 mg inhalation Q4H PRN 03/16/23 03/16/23 History (0.083 %) solution for nebulization Shortness Of Breath Or Wheezing ammonium lactate 12 % topical cream 1 applic topical DAILY PRN Dry Skin 03/16/23 03/16/23 History ezetimibe 10 mg tablet 10 mg PO DAILY 03/16/23 03/16/23 History hydrocodone-homatropine 5 mg-1.5 5 ml PO Q6H PRN Cough 03/16/23 03/16/23 History mg/5 mL oral syrup metronidazole 0.75 % topical gel 1 applic topical DAILY PRN Skin 03/16/23 03/16/23 History Irritation mupirocin 2 % topical ointment 1 applic topical BID PRN Skin 03/16/23 03/16/23 History Irritation naphazoline 0.25297 %-pheniramine 1 drp OPB UD 03/16/23 03/16/23 History 0.315 % eye drops nystatin 100,000 unit/gram topical 1 applic topical TID PRN Skin 03/16/23 03/16/23 History powder Irritation potassium chloride 10 mEq 20 meq PO .DAILY WITH TE MEAL 03/16/23 03/16/23 History tablet,extended release(part/cryst) triamcinolone acetonide 0.1 % 1 applic topical BID PRN Rash 03/16/23 03/16/23 History topical ointment Past Med/Surg History Medical History Anemia Anxiety and depression BPH (benign prostatic hyperplasia) Cardiac murmur echo 1-2 years ago [facility] Chronic obstructive pulmonary disease Chronic pruritus idiopathic; reason for Plaquenil Degenerative disc disease GERD (gastroesophageal reflux disease) History of paroxysmal supraventricular tachycardia follows with Ramesh Ornelas PA-C Hyperlipidemia Hypertension Hypothyroidism Macular degeneration On home oxygen therapy 2L O2 AT HS Osteoarthritis Skin cancer removed from left arm Surgical History History of AAA (abdominal aortic aneurysm) repair 1993 [facility] History of cardiac cath NO STENTS (15 YEARS AGO?) History of cataract surgery RT History of colonoscopy History of cystoscopy History of tonsillectomy History of tooth extraction Hx of transurethral resection of prostate Family History Other No significant family history Social History Smoking Status: Former smoker Second Hand Exposure: No; Do You Dip or Chew Tobacco: No; Tobacco Cessation Education Requested by Patient: No Hx Alcohol Use: Yes Hx Substance Use: No Preferred Language: Sinhala Communication Ability: Effective School Business Administrator Required: No Beliefs That Will Affect Care: None Current Living Situation: Spouse Other Information That Helps Us Care for You: No Feels Safe at Home: Yes Safety Concerns: Feels Safe At This Time Assistive Devices: Oxygen - at Night Assistive Devices Comment: 2 lpm O2 @ HS Review of Systems Review of Systems: All systems reviewed & are unremarkable except as noted in Subjective Physical Exam Constitutional: WD/WN, vitals as above Eyes: PERRL, conjunctivae normal, anicteric sclerae ENMT: external ear and nose normal, oropharynx normal Neck: trachea midline, no thyromegaly Respiratory: no respiratory distress, no labored breathing and does not use accessory muscles Auscultation: + wheezes Cardiovascular: RRR, no murmur, no edema Chest (Breasts): Chest: normal inspection of chest Gastrointestinal (Abdomen): normal bowel sounds, soft, nontender, no hepatosplenomegaly Musculoskeletal: no cyanosis or clubbing, extremities motor strength 5/5 Skin: no rashes, warm and dry Neurologic: PERRL, EOMI, accommodation nl, no face palsy, no dysarthria Psychiatric: A+Ox3, euthymic affect Lymphatic: no lymphedema Results & Data Results & Data Vital Signs (Past 12 Hours) Vital Signs Temp Pulse Pulse Resp BP BP Pulse Ox 03/16/23 14:17 96 H 03/16/23 14:14 98 H 26 H 95 03/16/23 14:10 94 H 30 H 151/66 H 96 03/16/23 14:00 96 H 32 H 151/66 H 97 03/16/23 13:31 95 03/16/23 13:31 37.0 C 32 H 95 03/16/23 13:31 95 03/16/23 13:31 03/16/23 13:31 37.0 C 97 H 32 H 141/88 H 97 O2 Del Method O2 Flow Rate 03/16/23 14:17 03/16/23 14:14 Oxymask 4 03/16/23 14:10 Oxymask 10 03/16/23 14:00 Oxymask 14 03/16/23 13:31 Oxymask 14 03/16/23 13:31 Oxymask 14 03/16/23 13:31 Oxymask 14 03/16/23 13:31 Oxymask 14 03/16/23 13:31 Oxymask 14 Laboratory Results 03/16/23 03/16/23 03/16/23 Range/Units 13:25 13:25 13:25 WBC (4.8-10.8) K/ul RBC (4.70-6.10) M/uL Hgb (14.0-18.0) g/dl Hct (42.0-52.0) % MCV (80.0-100.0) fL MCH (25.0-34.0) pg MCHC (32.0-36.0) g/dL RDW Std Deviation (36.4-46.3) fL RDW Coeff of Madyson (11.5-14.5) % Plt Count (130-400) K/uL MPV (9.4-12.4) fL Immature Gran % (Auto) % Neut % (Auto) % Lymph % (Auto) % Beckham % (Auto) % Eos % (Auto) % Baso % (Auto) % Neut # (Auto) (1.40-6.50) K/uL Lymph # (Auto) (1.2-3.4) K/uL Beckham # (Auto) (0.11-0.59) K/uL Eos # (Auto) (0-0.50) K/uL Baso # (Auto) (0-0.2) K/uL Immature Gran # (Auto) (0.01-0.20) K/uL PT (9.0-12.0) Seconds INR (0.9-1.1) APTT (21.0-31.0) Seconds PTT Ratio VBG pH (7.36-7.41) VBG pCO2 (38-50) mmHg VBG pO2 mmHg VBG HCO3 mmol/L VBG O2 Saturation % VBG Base Excess mEq/L Sodium 142 (136-145) mmol/L Potassium 3.4 L (3.5-5.1) mmol/L Chloride 101 (98-107) mmol/L Carbon Dioxide 31 (21-32) mmol/L Anion Gap 10 (3-11) BUN 15 (6-23) mg/dl Creatinine 0.91 (0.6-1.4) mg/dl Est Cr Clr Drug Dosing 86.8 ml/min Est GFR ( Amer) 91.3 ml/min Est GFR (Non-Af Amer) 78.8 ml/min BUN/Creatinine Ratio 16.5 (10-20) Glucose 112 H (70-99(Fasting)) mg/dl Calcium 9.3 (8.6-10.3) mg/dl Troponin I High Sens 6.9 (0-20) pg/ml B-Natriuretic Peptide 111 H (0-100) pg/ml Lipase 21 (11-82) U/L SARS-CoV-2 (PCR) NEGATIVE (Negative) Influenza Type A (PCR) Negative (Neg) Influenza Type B (PCR) Negative (Neg) RSV (RT-PCR) Negative (Neg) 03/16/23 03/16/23 03/16/23 Range/Units 13:25 13:25 13:25 WBC 12.03 H (4.8-10.8) K/ul RBC 5.30 (4.70-6.10) M/uL Hgb 15.4 (14.0-18.0) g/dl Hct 46.4 (42.0-52.0) % MCV 87.5 (80.0-100.0) fL MCH 29.1 (25.0-34.0) pg MCHC 33.2 (32.0-36.0) g/dL RDW Std Deviation 44.4 (36.4-46.3) fL RDW Coeff of Madyson 14.0 (11.5-14.5) % Plt Count 192 (130-400) K/uL MPV 9.9 (9.4-12.4) fL Immature Gran % (Auto) 0.6 % Neut % (Auto) 93.4 % Lymph % (Auto) 4.3 % Beckham % (Auto) 0.8 % Eos % (Auto) 0.7 % Baso % (Auto) 0.2 % Neut # (Auto) 11.23 H (1.40-6.50) K/uL Lymph # (Auto) 0.52 L (1.2-3.4) K/uL Beckham # (Auto) 0.10 L (0.11-0.59) K/uL Eos # (Auto) 0.08 (0-0.50) K/uL Baso # (Auto) 0.03 (0-0.2) K/uL Immature Gran # (Auto) 0.07 (0.01-0.20) K/uL PT 12.0 (9.0-12.0) Seconds INR 1.1 (0.9-1.1) APTT 21.0 (21.0-31.0) Seconds PTT Ratio 0.7 VBG pH 7.35 L (7.36-7.41) VBG pCO2 63 H (38-50) mmHg VBG pO2 31 mmHg VBG HCO3 35 mmol/L VBG O2 Saturation < 60.0 % VBG Base Excess 6.7 mEq/L Sodium (136-145) mmol/L Potassium (3.5-5.1) mmol/L Chloride (98-107) mmol/L Carbon Dioxide (21-32) mmol/L Anion Gap (3-11) BUN (6-23) mg/dl Creatinine (0.6-1.4) mg/dl Est Cr Clr Drug Dosing ml/min Est GFR ( Amer) ml/min Est GFR (Non-Af Amer) ml/min BUN/Creatinine Ratio (10-20) Glucose (70-99(Fasting)) mg/dl Calcium (8.6-10.3) mg/dl Troponin I High Sens (0-20) pg/ml B-Natriuretic Peptide (0-100) pg/ml Lipase (11-82) U/L SARS-CoV-2 (PCR) (Negative) Influenza Type A (PCR) (Neg) Influenza Type B (PCR) (Neg) RSV (RT-PCR) (Neg) Diagnostic Findings CXR FINDINGS: 2 AP, portable, upright chest radiographs are compared to study dated 03/31/2017. The heart is mildly enlarged noting atherosclerotic calcification of the thoracic aorta. The pulmonary vasculature is not congested. Emphysema and chronic interstitial thickening similar to previous. There are bibasilar airspace opacities. No large pleural effusion or Pneumothorax is seen. The skeletal structures are osteopenic. The bony thorax is grossly intact. IMPRESSION: 1. Cardiomegaly and emphysema without radiographic evidence of congestive failure. 2. Bibasilar airspace opacities could represent scarring/atelectasis versus pneumonia/aspiration pneumonitis. Clinical correlation will be required and radiographic follow-up to resolution is recommended. Code Status & VTE Plan VTE Prophylaxis Plan VTE Prophylaxis will be ordered: Yes
[2023-03-16 15:32] LABS: Magnesium 1.8 mg/dl (1.7-2.4)
[2023-03-16 16:12] LABS: Adenovirus PCR Not Detected (NotDetected); Bordetella parapertussis PCR Not Detected (NotDetected); Bordetella pertussis PCR Not Detected (NotDetected); Chlamydia pneumoniae PCR Not Detected (NotDetected); Coronavirus 229E PCR Not Detected (NotDetected); Coronavirus CoV-2 (COVID19)PCR Not Detected (NotDetected); Coronavirus HKU1 PCR Not Detected (NotDetected); Coronavirus NL63 PCR Not Detected (NotDetected); Coronavirus OC43PCR Not Detected (NotDetected); Human Metapneumovirus PCR Not Detected (NotDetected); Influenza A PCR Not Detected (NotDetected); Influenza B PCR Not Detected (NotDetected); Mycoplasma pneumoniae PCR Not Detected (NotDetected); Parainfluenza Virus 1 PCR Not Detected (NotDetected); Parainfluenza Virus 2 PCR Not Detected (NotDetected); Parainfluenza Virus 3 PCR Not Detected (NotDetected); Parainfluenza Virus 4 PCR Not Detected (NotDetected); Respiratory Syncytial VirusPCR Not Detected (NotDetected); Rhinovirus/Enterovirus PCR Not Detected (NotDetected)
[2023-03-16] MEDS ORDERED: LORazepam 0.5 MG TAB PO PRN (17:00)
[2023-03-16] MEDS ORDERED: hydrOXYzine HCl 10 MG TAB PO PRN (17:00)
[2023-03-16] MEDS ORDERED: KETOTIFEN FUMARATE OP PRN (17:00)
[2023-03-16] MEDS: ALBUT/IPRATROP 3MG/0.5MG NEB 3 ML VIAL NEB SCH (18:59)
[2023-03-16] MEDS: SIMVASTATIN 40 MG TAB PO SCH (20:21)
[2023-03-16] MEDS: ADVANCED PROBIOTIC 1250 MG CAPSULE PO SCH (20:21)
[2023-03-16] MEDS: TAMSULOSIN HCL 0.4 MG CAP PO SCH (20:21)
[2023-03-16] MEDS: guaiFENesin 600 MG TABCR PO SCH (20:22)
[2023-03-16] MEDS: DOXYCYCLINE HYCLATE 100 MG CAP PO SCH (20:22)
[2023-03-16] MEDS: FINASTERIDE 5 MG TAB PO SCH (20:22)
[2023-03-16] MEDS: ATENOLOL 25 MG TABLET PO SCH (20:23)
[2023-03-16] MEDS: ASPIRIN 81 MG ECTAB PO SCH (20:23)
[2023-03-16] MEDS: HEPARIN SOD 5,000 UNIT/0.5 ML VIAL SQ SCH (20:25)
[2023-03-16] MEDS: methylPREDNISolone 40 MG in SYRINGE 0 ML IV SCH (21:35)
[2023-03-17] MEDS: LEVOTHYROXINE SODIUM 75 MCG TABLET PO SCH (05:41)
[2023-03-17] MEDS: methylPREDNISolone 40 MG in SYRINGE 0 ML IV SCH ×3 (05:41→21:08)
[2023-03-17] MEDS: ALBUT/IPRATROP 3MG/0.5MG NEB 3 ML VIAL NEB SCH ×4 (06:59→19:11)
--- NOTE | 2023-03-17 07:36 | Hospitalist Progress Note ---
Date of Service March 17, 2023 Assessment & Plan (1) Acute respiratory failure with hypoxia: (2) COPD exacerbation: Plan: Acute resp. failure, hx of COPD,group D- likely COPD exacerbation, hx of CAD - poss. component of CHF Pt w/ weakness, and feeling "shaky" at home EMS called and reported SBP 200, gave nitro x2, duoneb, cpap In ED received Duoneb, solumedrol, IV lasix, able to go from 15L oxymask down to 4L in ED CXR 1. Cardiomegaly and emphysema without radiographic evidence of congestive failure. 2. Bibasilar airspace opacities could represent scarring/atelectasis versus pneumonia/aspiration pneumonitis. Clinical correlation will be required and radiographic follow-up to resolution is recommended. BNP 111 Initial trop negative- repeat elevated from previous but still normal - trended down ECG, monitor on tele, Echo checked - no wall motion abnormality, no sign. change from previous study For CAD, HTN, HLD - cont. ASA, statin, zetia, atenolol, chlorthalidone On physical exam pt appears euvolemic, for now will not continue any lasix, will re-assess daily Biofire negative Procal - negative sputum cultx ordered - uncollected Cont. home meds for COPD - Trelegy, Daliresp, - also cont. duoneb, guaifenesin, solumedrol, flutter valve, IS Hypothyroidism - cont. home levothyroxine BPH - cont. finasteride, tamsulosin DVT ppx - heparin subq Dispo: PCU Code: DNR/DNI Admission and Anticipated Discharge Date Admission Date: March 16, 2023 Subjective Pt seen in follow up of hypoxia, copd exacerbation Sitting up in bed, in NAD He is eating lunch, overall he feels much improved. Continues to use 4 L of supplemental oxygen Denies any chest pain, denies shortness of breath. Reports cough and mucus pro duction. No abdominal pain, nausea or vomiting. Patient's present at the bedside. Review of Systems Review of Systems: All systems reviewed & are unremarkable except as noted in Subjective Physical Exam Physical Exam: Constitutional:L WD/WN, elderly M i n NAD, on suppl. O 2 Eyes: PERRL, EOMI, conju nctivae normal, an icteric sclerae ENMT: external ear and n ose normal Neck: supple Respiratory: no respiratory dis tress, no labored breathing and does not use accessory muscles, no wheez ing, somewhat dimi nished breath soun ds Cardiovascular:L RRR, no murmur, no edema Chest (Breasts): Chest: normal insp ection of chest Gastrointestinal ( Abdomen): normal bowel sound s, soft, nontender Musculoskeletal: moves extremities Skin: no rashes, warm an d dry Neurologic: PERRL, EOMI, no fa ce palsy, no dysar thria, moves extre mities Psychiatric: A+Ox3, euthymic af fect Lymphatic: no lymphedema Results & Data Results & Data Vital Signs (Past 12 Hours) Vital Signs Temp Pulse Pulse Resp BP Pulse Ox O2 Del Method 03/17/23 06:59 68 18 95 Nasal Cannula 03/17/23 02:55 36.8 C 55 L 18 144/73 H 94 Oxymask 03/16/23 22:00 59 L 03/16/23 22:55 36.5 C 58 L 18 135/65 93 Oxymask 03/16/23 20:00 Nasal Cannula, Oxymask 03/16/23 19:45 36.4 C L 72 20 150/76 H 93 Oxymask O2 Flow Rate 03/17/23 06:59 4 03/17/23 02:55 4 03/16/23 22:00 03/16/23 22:55 4 03/16/23 20:00 4 03/16/23 19:45 4 Laboratory Results 03/17/23 03/17/23 03/16/23 Range/Units 07:15 07:01 22:42 WBC 27.19 H D (4.8-10.8) K/ul RBC 5.05 (4.70-6.10) M/uL Hgb 14.7 (14.0-18.0) g/dl Hct 43.2 (42.0-52.0) % MCV 85.5 (80.0-100.0) fL MCH 29.1 (25.0-34.0) pg MCHC 34.0 (32.0-36.0) g/dL RDW Std Deviation 43.8 (36.4-46.3) fL RDW Coeff of Madyson 14.2 (11.5-14.5) % Plt Count 207 (130-400) K/uL MPV 10.3 (9.4-12.4) fL Immature Gran % (Auto) % Neut % (Auto) % Lymph % (Auto) % [place] % (Auto) % Eos % (Auto) % Baso % (Auto) % Neut # (Auto) (1.40-6.50) K/uL Lymph # (Auto) (1.2-3.4) K/uL [place] # (Auto) (0.11-0.59) K/uL Eos # (Auto) (0-0.50) K/uL Baso # (Auto) (0-0.2) K/uL Immature Gran # (Auto) (0.01-0.20) K/uL PT (9.0-12.0) Seconds INR (0.9-1.1) APTT (21.0-31.0) Seconds PTT Ratio VBG pH (7.36-7.41) VBG pCO2 (38-50) mmHg VBG pO2 mmHg VBG HCO3 mmol/L VBG O2 Saturation % VBG Base Excess mEq/L Sodium 139 (136-145) mmol/L Potassium 3.4 L (3.5-5.1) mmol/L Chloride 101 (98-107) mmol/L Carbon Dioxide 29 (21-32) mmol/L Anion Gap 9 (3-11) BUN 19 (6-23) mg/dl Creatinine 0.97 (0.6-1.4) mg/dl Est Cr Clr Drug Dosing 80.1 ml/min Est GFR ( Amer) 84.5 ml/min Est GFR (Non-Af Amer) 72.9 ml/min BUN/Creatinine Ratio 19.6 (10-20) Glucose 131 H (70-99(Fasting)) mg/dl Calcium 8.7 (8.6-10.3) mg/dl Phosphorus 3.2 (2.5-4.9) mg/dl Magnesium 1.9 (1.7-2.4) mg/dl Troponin I High Sens 17.3 D 22.9 H (0-20) pg/ml B-Natriuretic Peptide (0-100) pg/ml Lipase (11-82) U/L Procalcitonin (0-0.5) ng/ml Adenovirus (PCR) (NotDetected) B. pertussis DNA (PCR) (NotDetected) B.parapertussis DNA PCR (NotDetected) C. pneumoniae DNA (PCR) (NotDetected) Coronavirus OC43 (PCR) (NotDetected) Coronavirus HKU1 (PCR) (NotDetected) Coronavirus 229E (PCR) (NotDetected) SARS-CoV-2 (PCR) (Negative) Coronavirus NL63 (PCR) (NotDetected) Human Metapneumovir PCR (NotDetected) Influenza Type A (PCR) (Neg) Influenza Type B (PCR) (Neg) M. pneumoniae (PCR) (NotDetected) Parainfluenza 1 (PCR) (NotDetected) Parainfluenza 2 (PCR) (NotDetected) Parainfluenza 3 (PCR) (NotDetected) Parainfluenza 4 (PCR) (NotDetected) RSV (RT-PCR) (Neg) RSV (PCR) (NotDetected) Entero/Rhino (PCR) (NotDetected) 03/16/23 03/16/23 03/16/23 Range/Units 16:31 14:59 13:28 WBC (4.8-10.8) K/ul RBC (4.70-6.10) M/uL Hgb (14.0-18.0) g/dl Hct (42.0-52.0) % MCV (80.0-100.0) fL MCH (25.0-34.0) pg MCHC (32.0-36.0) g/dL RDW Std Deviation (36.4-46.3) fL RDW Coeff of Madyson (11.5-14.5) % Plt Count (130-400) K/uL MPV (9.4-12.4) fL Immature Gran % (Auto) % Neut % (Auto) % Lymph % (Auto) % [place] % (Auto) % Eos % (Auto) % Baso % (Auto) % Neut # (Auto) (1.40-6.50) K/uL Lymph # (Auto) (1.2-3.4) K/uL [place] # (Auto) (0.11-0.59) K/uL Eos # (Auto) (0-0.50) K/uL Baso # (Auto) (0-0.2) K/uL Immature Gran # (Auto) (0.01-0.20) K/uL PT (9.0-12.0) Seconds INR (0.9-1.1) APTT (21.0-31.0) Seconds PTT Ratio VBG pH (7.36-7.41) VBG pCO2 (38-50) mmHg VBG pO2 mmHg VBG HCO3 mmol/L VBG O2 Saturation % VBG Base Excess mEq/L Sodium (136-145) mmol/L Potassium (3.5-5.1) mmol/L Chloride (98-107) mmol/L Carbon Dioxide (21-32) mmol/L Anion Gap (3-11) BUN (6-23) mg/dl Creatinine (0.6-1.4) mg/dl Est Cr Clr Drug Dosing ml/min Est GFR ( Amer) ml/min Est GFR (Non-Af Amer) ml/min BUN/Creatinine Ratio (10-20) Glucose (70-99(Fasting)) mg/dl Calcium (8.6-10.3) mg/dl Phosphorus (2.5-4.9) mg/dl Magnesium (1.7-2.4) mg/dl Troponin I High Sens 16.8 D (0-20) pg/ml B-Natriuretic Peptide (0-100) pg/ml Lipase (11-82) U/L Procalcitonin 0.18 (0-0.5) ng/ml Adenovirus (PCR) Not Detected (NotDetected) B. pertussis DNA (PCR) Not Detected (NotDetected) B.parapertussis DNA PCR Not Detected (NotDetected) C. pneumoniae DNA (PCR) Not Detected (NotDetected) Coronavirus OC43 (PCR) Not Detected (NotDetected) Coronavirus HKU1 (PCR) Not Detected (NotDetected) Coronavirus 229E (PCR) Not Detected (NotDetected) SARS-CoV-2 (PCR) Not Detected (Negative) Coronavirus NL63 (PCR) Not Detected (NotDetected) Human Metapneumovir PCR Not Detected (NotDetected) Influenza Type A (PCR) Not Detected (Neg) Influenza Type B (PCR) Not Detected (Neg) M. pneumoniae (PCR) Not Detected (NotDetected) Parainfluenza 1 (PCR) Not Detected (NotDetected) Parainfluenza 2 (PCR) Not Detected (NotDetected) Parainfluenza 3 (PCR) Not Detected (NotDetected) Parainfluenza 4 (PCR) Not Detected (NotDetected) RSV (RT-PCR) (Neg) RSV (PCR) Not Detected (NotDetected) Entero/Rhino (PCR) Not Detected (NotDetected) 03/16/23 03/16/23 03/16/23 Range/Units 13:25 13:25 13:25 WBC (4.8-10.8) K/ul RBC (4.70-6.10) M/uL Hgb (14.0-18.0) g/dl Hct (42.0-52.0) % MCV (80.0-100.0) fL MCH (25.0-34.0) pg MCHC (32.0-36.0) g/dL RDW Std Deviation (36.4-46.3) fL RDW Coeff of Madyson (11.5-14.5) % Plt Count (130-400) K/uL MPV (9.4-12.4) fL Immature Gran % (Auto) % Neut % (Auto) % Lymph % (Auto) % [place] % (Auto) % Eos % (Auto) % Baso % (Auto) % Neut # (Auto) (1.40-6.50) K/uL Lymph # (Auto) (1.2-3.4) K/uL [place] # (Auto) (0.11-0.59) K/uL Eos # (Auto) (0-0.50) K/uL Baso # (Auto) (0-0.2) K/uL Immature Gran # (Auto) (0.01-0.20) K/uL PT (9.0-12.0) Seconds INR (0.9-1.1) APTT (21.0-31.0) Seconds PTT Ratio VBG pH (7.36-7.41) VBG pCO2 (38-50) mmHg VBG pO2 mmHg VBG HCO3 mmol/L VBG O2 Saturation % VBG Base Excess mEq/L Sodium 142 (136-145) mmol/L Potassium 3.4 L (3.5-5.1) mmol/L Chloride 101 (98-107) mmol/L Carbon Dioxide 31 (21-32) mmol/L Anion Gap 10 (3-11) BUN 15 (6-23) mg/dl Creatinine 0.91 (0.6-1.4) mg/dl Est Cr Clr Drug Dosing 86.8 ml/min Est GFR ( Amer) 91.3 ml/min Est GFR (Non-Af Amer) 78.8 ml/min BUN/Creatinine Ratio 16.5 (10-20) Glucose 112 H (70-99(Fasting)) mg/dl Calcium 9.3 (8.6-10.3) mg/dl Phosphorus (2.5-4.9) mg/dl Magnesium 1.8 (1.7-2.4) mg/dl Troponin I High Sens 6.9 (0-20) pg/ml B-Natriuretic Peptide 111 H (0-100) pg/ml Lipase 21 (11-82) U/L Procalcitonin (0-0.5) ng/ml Adenovirus (PCR) (NotDetected) B. pertussis DNA (PCR) (NotDetected) B.parapertussis DNA PCR (NotDetected) C. pneumoniae DNA (PCR) (NotDetected) Coronavirus OC43 (PCR) (NotDetected) Coronavirus HKU1 (PCR) (NotDetected) Coronavirus 229E (PCR) (NotDetected) SARS-CoV-2 (PCR) NEGATIVE (Negative) Coronavirus NL63 (PCR) (NotDetected) Human Metapneumovir PCR (NotDetected) Influenza Type A (PCR) Negative (Neg) Influenza Type B (PCR) Negative (Neg) M. pneumoniae (PCR) (NotDetected) Parainfluenza 1 (PCR) (NotDetected) Parainfluenza 2 (PCR) (NotDetected) Parainfluenza 3 (PCR) (NotDetected) Parainfluenza 4 (PCR) (NotDetected) RSV (RT-PCR) Negative (Neg) RSV (PCR) (NotDetected) Entero/Rhino (PCR) (NotDetected) 04/29/23 04/29/23 04/29/23 Range/Units 13:25 13:25 13:25 WBC 12.03 H (4.8-10.8) K/ul RBC 5.30 (4.70-6.10) M/uL Hgb 15.4 (14.0-18.0) g/dl Hct 46.4 (42.0-52.0) % MCV 87.5 (80.0-100.0) fL MCH 29.1 (25.0-34.0) pg MCHC 33.2 (32.0-36.0) g/dL RDW Std Deviation 44.4 (36.4-46.3) fL RDW Coeff of Madyson 14.0 (11.5-14.5) % Plt Count 192 (130-400) K/uL MPV 9.9 (9.4-12.4) fL Immature Gran % (Auto) 0.6 % Neut % (Auto) 93.4 % Lymph % (Auto) 4.3 % [place] % (Auto) 0.8 % Eos % (Auto) 0.7 % Baso % (Auto) 0.2 % Neut # (Auto) 11.23 H (1.40-6.50) K/uL Lymph # (Auto) 0.52 L (1.2-3.4) K/uL [place] # (Auto) 0.10 L (0.11-0.59) K/uL Eos # (Auto) 0.08 (0-0.50) K/uL Baso # (Auto) 0.03 (0-0.2) K/uL Immature Gran # (Auto) 0.07 (0.01-0.20) K/uL PT 12.0 (9.0-12.0) Seconds INR 1.1 (0.9-1.1) APTT 21.0 (21.0-31.0) Seconds PTT Ratio 0.7 VBG pH 7.35 L (7.36-7.41) VBG pCO2 63 H (38-50) mmHg VBG pO2 31 mmHg VBG HCO3 35 mmol/L VBG O2 Saturation < 60.0 % VBG Base Excess 6.7 mEq/L Sodium (136-145) mmol/L Potassium (3.5-5.1) mmol/L Chloride (98-107) mmol/L Carbon Dioxide (21-32) mmol/L Anion Gap (3-11) BUN (6-23) mg/dl Creatinine (0.6-1.4) mg/dl Est Cr Clr Drug Dosing ml/min Est GFR ( Amer) ml/min Est GFR (Non-Af Amer) ml/min BUN/Creatinine Ratio (10-20) Glucose (70-99(Fasting)) mg/dl Calcium (8.6-10.3) mg/dl Phosphorus (2.5-4.9) mg/dl Magnesium (1.7-2.4) mg/dl Troponin I High Sens (0-20) pg/ml B-Natriuretic Peptide (0-100) pg/ml Lipase (11-82) U/L Procalcitonin (0-0.5) ng/ml Adenovirus (PCR) (NotDetected) B. pertussis DNA (PCR) (NotDetected) B.parapertussis DNA PCR (NotDetected) C. pneumoniae DNA (PCR) (NotDetected) Coronavirus OC43 (PCR) (NotDetected) Coronavirus HKU1 (PCR) (NotDetected) Coronavirus 229E (PCR) (NotDetected) SARS-CoV-2 (PCR) (Negative) Coronavirus NL63 (PCR) (NotDetected) Human Metapneumovir PCR (NotDetected) Influenza Type A (PCR) (Neg) Influenza Type B (PCR) (Neg) M. pneumoniae (PCR) (NotDetected) Parainfluenza 1 (PCR) (NotDetected) Parainfluenza 2 (PCR) (NotDetected) Parainfluenza 3 (PCR) (NotDetected) Parainfluenza 4 (PCR) (NotDetected) RSV (RT-PCR) (Neg) RSV (PCR) (NotDetected) Entero/Rhino (PCR) (NotDetected) Medications Administered Current Inpatient Medications Acetaminophen (Acetaminophen 325 Mg Tab) 650 mg PO Q4H PRN PRN Reason: Pain or Fever Stop: 04/15/23 14:50 Acetaminophen (Acetaminophen 325 Mg Tab) 650 mg PO Q8H PRN PRN Reason: Pain Stop: 04/15/23 17:25 Albuterol (Albut/Ipratrop 3mg/0.5mg Neb 3 Ml Vial) 3 ml NEB QIDR [facility]; Protocol Stop: 04/15/23 18:59 Last Admin: 03/17/23 06:59 Dose: 3 ml Aspirin (Aspirin 81 Mg Ectab) 81 mg PO QPM [facility] Stop: 04/15/23 20:59 Last Admin: 03/16/23 20:23 Dose: 81 mg Atenolol (Atenolol 25 Mg Tablet) 25 mg PO BID [facility] Stop: 04/15/23 20:59 Last Admin: 03/16/23 20:23 Dose: 25 mg Chlorthalidone (Chlorthalidone 25 Mg Tab) 12.5 mg PO DAILY [facility] Stop: 04/16/23 08:59 Doxycycline Hyclate (Doxycycline Hyclate 100 Mg Cap) 100 mg PO BID [facility] Stop: 03/23/23 20:59 Last Admin: 03/16/23 20:22 Dose: 100 mg Finasteride (Finasteride 5 Mg Tab) 5 mg PO QPM [facility] Stop: 04/15/23 20:59 Last Admin: 03/16/23 20:22 Dose: 5 mg Fluticasone Furoate (Fluticasone Furoate 100mcg 14 Puffs/Inhaler) 1 puffs INH DAILY [facility] Stop: 04/16/23 08:59 Guaifenesin (Guaifenesin 600 Mg Tabcr) 600 mg PO Q12 [facility] Stop: 04/15/23 20:59 Last Admin: 03/16/23 20:22 Dose: 600 mg Heparin Sodium (Porcine) (Heparin Sod 5,000 Unit/0.5 Ml Vial) 5,000 units SQ Q12 [facility] Stop: 04/15/23 20:59 Last Admin: 03/16/23 20:25 Dose: 5,000 units Hydroxyzine HCl (Hydroxyzine Hcl 10 Mg Tab) 20 mg PO HS PRN PRN Reason: Itching Stop: 04/15/23 16:59 Methylprednisolone 40 mg/ (Syringe) 0.64 mls @ 1.5 mls/min IV Q8H [facility] Stop: 04/15/23 21:59 Last Admin: 03/17/23 05:41 Dose: 1.5 mls/min Lactobacillus Acidophilus (Advanced Probiotic 1250 Mg Capsule) 2 cap PO HS [facility] Stop: 04/15/23 20:59 Last Admin: 03/16/23 20:21 Dose: 2 cap Levothyroxine Sodium (Levothyroxine Sodium 75 Mcg Tablet) 75 mcg PO DAILYBB [facility] Stop: 04/16/23 06:29 Last Admin: 03/17/23 05:41 Dose: 75 mcg Lorazepam (Lorazepam 0.5 Mg Tab) 0.5 mg PO BID PRN PRN Reason: Anxiety Stop: 04/15/23 16:59 Roflumilast (Roflumilast 500 Mcg Tab) 500 mcg PO QAM [facility] Stop: 04/16/23 08:59 Sertraline HCl (Sertraline Hcl 100 Mg Tablet) 100 mg PO QAM [facility] Stop: 04/16/23 08:59 Simvastatin (Simvastatin 40 Mg Tab) 40 mg PO HS [facility] Stop: 04/15/23 20:59 Last Admin: 03/16/23 20:21 Dose: 40 mg Tamsulosin HCl (Tamsulosin Hcl 0.4 Mg Cap) 0.4 mg PO QPM [facility] Stop: 04/15/23 20:59 Last Admin: 03/16/23 20:21 Dose: 0.4 mg Umeclidinium/Vilanterol (Umeclidinium/Vilanterol 62.5/25mcg 7 Puffs/Inhaler) 1 puffs INH DAILY [facility] Stop: 04/16/23 08:59
[2023-03-17 07:55] LABS: BUN Creatinine Ratio 19.6 (10-20); Calcium 8.7 mg/dl (8.6-10.3); Creatinine Clr Calc Pharmacy 80.1 ml/min; Est GFR (African American) 84.5 ml/min; Est GFR (Non-African American) 72.9 ml/min; Magnesium 1.9 mg/dl (1.7-2.4); Phosphorus 3.2 mg/dl (2.5-4.9); Potassium 3.4 mmol/L (3.5-5.1)
[2023-03-17 07:58] LABS: Hematocrit (blood only) 43.2 % (42.0-52.0); Hemoglobin 14.7 g/dl (14.0-18.0); Mean Corpuscular Hemoglobin 29.1 pg (25.0-34.0); Mean Corpuscular Volume 85.5 fL (80.0-100.0); Mean Platelet Volume 10.3 fL (9.4-12.4); Platelet Count 207 K/uL (130-400); RDW Coefficient of Variation 14.2 % (11.5-14.5); RDW Standard Deviation 43.8 fL (36.4-46.3); Red Blood Count 5.05 M/uL (4.70-6.10); White Blood Count 27.19 K/ul (4.8-10.8)
[2023-03-17 08:04] LABS: Troponin I High Sensitivity 17.3 pg/ml (0-20)
[2023-03-17] MEDS: CHLORTHALIDONE 25 MG TAB PO SCH (08:17)
[2023-03-17] MEDS: FLUTICASONE FUROATE 100MCG 14 PUFFS/INHALER INH SCH (08:17)
[2023-03-17] MEDS: DOXYCYCLINE HYCLATE 100 MG CAP PO SCH ×2 (08:17→20:20)
[2023-03-17] MEDS: guaiFENesin 600 MG TABCR PO SCH ×2 (08:17→20:20)
[2023-03-17] MEDS: SERTRALINE HCL 100 MG TABLET PO SCH (08:18)
[2023-03-17] MEDS: ROFLUMILAST 500 MCG TAB PO SCH (08:18)
[2023-03-17] MEDS: UMECLIDINIUM/VILANTEROL 62.5/25MCG 7 PUFFS/INHALER INH SCH (08:18)
[2023-03-17] MEDS: HEPARIN SOD 5,000 UNIT/0.5 ML VIAL SQ SCH ×2 (08:18→20:21)
[2023-03-17] MEDS: ATENOLOL 25 MG TABLET PO SCH ×2 (08:18→20:19)
[2023-03-17] MEDS ORDERED: NON-FORMULARY MEDICATION (Coq10 (Ubiquinol) 100 mg Capsule) PO SCH (09:00)
[2023-03-17] MEDS ORDERED: NON-FORMULARY MEDICATION (Fluticasone-Umeclidin-Vilanter [Trelegy Ellipta] 100-62.5-25 mcg INH SCH (09:00)
[2023-03-17] MEDS ORDERED: NON-FORMULARY MEDICATION (Vit C-E-Zinc Cit-Lutein-Zeaxan [Ocuvite Eye Health] 50 mg-15 uni PO SCH (09:00)
[2023-03-17] MEDS ORDERED: POTASSIUM CHLORIDE CRTAB 20 MEQ TABCR PO STA (10:27)
[2023-03-17] MEDS: ASPIRIN 81 MG ECTAB PO SCH (20:18)
[2023-03-17] MEDS: FINASTERIDE 5 MG TAB PO SCH (20:20)
[2023-03-17] MEDS: ADVANCED PROBIOTIC 1250 MG CAPSULE PO SCH (20:21)
[2023-03-17] MEDS: TAMSULOSIN HCL 0.4 MG CAP PO SCH (20:22)
[2023-03-17] MEDS: SIMVASTATIN 40 MG TAB PO SCH (20:22)
[2023-03-18] MEDS: methylPREDNISolone 40 MG in SYRINGE 0 ML IV SCH ×3 (05:06→20:32)
[2023-03-18] MEDS: LEVOTHYROXINE SODIUM 75 MCG TABLET PO SCH (05:06)
[2023-03-18 06:43] LABS: Hematocrit (blood only) 43.8 % (42.0-52.0); Hemoglobin 15.1 g/dl (14.0-18.0); Mean Corpuscular Hemoglobin 29.4 pg (25.0-34.0); Mean Corpuscular Hgb Conc 34.5 g/dL (32.0-36.0); Mean Corpuscular Volume 85.4 fL (80.0-100.0); Mean Platelet Volume 10.8 fL (9.4-12.4); Platelet Count 226 K/uL (130-400); RDW Coefficient of Variation 14.1 % (11.5-14.5); RDW Standard Deviation 43.9 fL (36.4-46.3); Red Blood Count 5.13 M/uL (4.70-6.10); White Blood Count 24.83 K/ul (4.8-10.8)
[2023-03-18] MEDS: ALBUT/IPRATROP 3MG/0.5MG NEB 3 ML VIAL NEB SCH ×4 (06:55→19:45)
[2023-03-18 07:03] LABS: BUN Creatinine Ratio 30.5 (10-20); Calcium 8.7 mg/dl (8.6-10.3); Est GFR (African American) 76.8 ml/min; Est GFR (Non-African American) 66.3 ml/min; Magnesium 2.1 mg/dl (1.7-2.4); Phosphorus 2.9 mg/dl (2.5-4.9); Potassium 3.7 mmol/L (3.5-5.1)
[2023-03-18] MEDS: CHLORTHALIDONE 25 MG TAB PO SCH (07:48)
[2023-03-18] MEDS: DOXYCYCLINE HYCLATE 100 MG CAP PO SCH ×2 (07:48→20:30)
[2023-03-18] MEDS: HEPARIN SOD 5,000 UNIT/0.5 ML VIAL SQ SCH ×2 (07:48→20:31)
[2023-03-18] MEDS: guaiFENesin 600 MG TABCR PO SCH ×2 (07:48→20:30)
[2023-03-18] MEDS: ROFLUMILAST 500 MCG TAB PO SCH (07:48)
[2023-03-18] MEDS: ATENOLOL 25 MG TABLET PO SCH ×2 (07:48→20:29)
[2023-03-18] MEDS: SERTRALINE HCL 100 MG TABLET PO SCH (07:48)
[2023-03-18] MEDS: FLUTICASONE FUROATE 100MCG 14 PUFFS/INHALER INH SCH (07:49)
[2023-03-18] MEDS: UMECLIDINIUM/VILANTEROL 62.5/25MCG 7 PUFFS/INHALER INH SCH (07:49)
--- NOTE | 2023-03-18 07:51 | Hospitalist Progress Note ---
Date of Service March 18, 2023 Assessment & Plan (1) Acute respiratory failure with hypoxia: (2) COPD exacerbation: Plan: Acute resp. failure, hx of COPD,group D- likely COPD exacerbation, hx of CAD - poss. component of CHF Pt w/ weakness, and feeling "shaky" at home EMS called and reported SBP 200, gave nitro x2, duoneb, cpap In ED received Duoneb, solumedrol, IV lasix, able to go from 15L oxymask down to 4L in ED CXR 1. Cardiomegaly and emphysema without radiographic evidence of congestive failure. 2. Bibasilar airspace opacities could represent scarring/atelectasis versus pneumonia/aspiration pneumonitis. Clinical correlation will be required and radiographic follow-up to resolution is recommended. BNP 111 Initial trop negative- repeat elevated from previous but still normal - trended down ECG, monitor on tele, Echo checked - no wall motion abnormality, no sign. change from previous study For CAD, HTN, HLD - cont. ASA, statin, zetia, atenolol, chlorthalidone On physical exam pt appears euvolemic, for now will not continue any lasix, will re-assess daily Biofire negative Procal - negative sputum cultx ordered - pending Cont. home meds for COPD - Trelegy, Daliresp, - also cont. duoneb, guaifenesin, solumedrol, flutter valve, IS 5/1 Oxygen requirement down to 3L. Pt feeling better however very week. PT/OT ordered Pt's at the bedside and has multiple concerns, including dysphagia/ ? food regurg. - will consult w/speech therapist Hypothyroidism - cont. home levothyroxine BPH - cont. finasteride, tamsulosin DVT ppx - heparin subq Dispo: PCU Code: DNR/DNI Admission and Anticipated Discharge Date Admission Date: March 16, 2023 Subjective Pt seen in follow up of hypoxia, copd exacerbation Sitting up in bed, in NAD He is eating lunch, overall he feels improved. Continues to use 3 L of supplemental oxygen Denies any chest pain, denies shortness of breath. + cough and mucus production No abdominal pain, nausea or vomiting. Patient's present at the bedside. Review of Systems Review of Systems: All systems reviewed & are unremarkable except as noted in Subjective Physical Exam Physical Exam: Constitutional:L WD/WN, elderly M i n NAD, on suppl. O 2 Eyes: PERRL, EOMI, conju nctivae normal, an icteric sclerae ENMT: external ear and n ose normal Neck: supple Respiratory: no respiratory dis tress, no labored breathing and does not use accessory muscles, no wheez ing, somewhat dimi nished breath soun ds Cardiovascular:L RRR, no murmur, no edema Chest (Breasts): Chest: normal insp ection of chest Gastrointestinal ( Abdomen): normal bowel sound s, soft, nontender Musculoskeletal: moves extremities Skin: no rashes, warm an d dry Neurologic: PERRL, EOMI, no fa ce palsy, no dysar thria, moves extre mities Psychiatric: A+Ox3, euthymic af fect Lymphatic: no lymphedema Results & Data Results & Data Vital Signs (Past 12 Hours) Vital Signs Temp Pulse Pulse Resp BP Pulse Ox O2 Del Method 03/18/23 06:55 61 18 96 Nasal Cannula 03/18/23 02:38 36.6 C 61 18 139/77 94 Nasal Cannula 03/17/23 23:00 64 03/17/23 22:55 36.7 C 64 18 138/58 L 93 Nasal Cannula 03/17/23 20:10 Nasal Cannula O2 Flow Rate 03/18/23 06:55 4 03/18/23 02:38 4 03/17/23 23:00 03/17/23 22:55 03/17/23 20:10 4 Laboratory Results 03/18/23 03/18/23 03/17/23 Range/Units 06:02 06:02 07:15 WBC 24.83 H (4.8-10.8) K/ul RBC 5.13 (4.70-6.10) M/uL Hgb 15.1 (14.0-18.0) g/dl Hct 43.8 (42.0-52.0) % MCV 85.4 (80.0-100.0) fL MCH 29.4 (25.0-34.0) pg MCHC 34.5 (32.0-36.0) g/dL RDW Std Deviation 43.9 (36.4-46.3) fL RDW Coeff of Madyson 14.1 (11.5-14.5) % Plt Count 226 (130-400) K/uL MPV 10.8 (9.4-12.4) fL Sodium 137 139 (136-145) mmol/L Potassium 3.7 3.4 L (3.5-5.1) mmol/L Chloride 99 101 (98-107) mmol/L Carbon Dioxide 30 29 (21-32) mmol/L Anion Gap 8 9 (3-11) BUN 32 H 19 (6-23) mg/dl Creatinine 1.05 0.97 (0.6-1.4) mg/dl Est Cr Clr Drug Dosing 74.0 80.1 ml/min Est GFR ( Amer) 76.8 84.5 ml/min Est GFR (Non-Af Amer) 66.3 72.9 ml/min BUN/Creatinine Ratio 30.5 H 19.6 (10-20) Glucose 146 H 131 H (70-99(Fasting)) mg/dl Calcium 8.7 8.7 (8.6-10.3) mg/dl Phosphorus 2.9 3.2 (2.5-4.9) mg/dl Magnesium 2.1 1.9 (1.7-2.4) mg/dl Troponin I High Sens 17.3 D (0-20) pg/ml 03/17/23 Range/Units 07:01 WBC 27.19 H D (4.8-10.8) K/ul RBC 5.05 (4.70-6.10) M/uL Hgb 14.7 (14.0-18.0) g/dl Hct 43.2 (42.0-52.0) % MCV 85.5 (80.0-100.0) fL MCH 29.1 (25.0-34.0) pg MCHC 34.0 (32.0-36.0) g/dL RDW Std Deviation 43.8 (36.4-46.3) fL RDW Coeff of Madyson 14.2 (11.5-14.5) % Plt Count 207 (130-400) K/uL MPV 10.3 (9.4-12.4) fL Sodium (136-145) mmol/L Potassium (3.5-5.1) mmol/L Chloride (98-107) mmol/L Carbon Dioxide (21-32) mmol/L Anion Gap (3-11) BUN (6-23) mg/dl Creatinine (0.6-1.4) mg/dl Est Cr Clr Drug Dosing ml/min Est GFR ( Amer) ml/min Est GFR (Non-Af Amer) ml/min BUN/Creatinine Ratio (10-20) Glucose (70-99(Fasting)) mg/dl Calcium (8.6-10.3) mg/dl Phosphorus (2.5-4.9) mg/dl Magnesium (1.7-2.4) mg/dl Troponin I High Sens (0-20) pg/ml Medications Administered Current Inpatient Medications Acetaminophen (Acetaminophen 325 Mg Tab) 650 mg PO Q4H PRN PRN Reason: Pain or Fever Stop: 04/15/23 14:50 Acetaminophen (Acetaminophen 325 Mg Tab) 650 mg PO Q8H PRN PRN Reason: Pain Stop: 04/15/23 17:25 Albuterol (Albut/Ipratrop 3mg/0.5mg Neb 3 Ml Vial) 3 ml NEB QIDR [facility]; Protocol Stop: 04/15/23 18:59 Last Admin: 03/18/23 06:55 Dose: 3 ml Aspirin (Aspirin 81 Mg Ectab) 81 mg PO QPM [facility] Stop: 04/15/23 20:59 Last Admin: 03/17/23 20:18 Dose: 81 mg Atenolol (Atenolol 25 Mg Tablet) 25 mg PO BID [facility] Stop: 04/15/23 20:59 Last Admin: 03/18/23 07:48 Dose: 25 mg Chlorthalidone (Chlorthalidone 25 Mg Tab) 12.5 mg PO DAILY [facility] Stop: 04/16/23 08:59 Last Admin: 03/18/23 07:48 Dose: 12.5 mg Doxycycline Hyclate (Doxycycline Hyclate 100 Mg Cap) 100 mg PO BID [facility] Stop: 03/23/23 20:59 Last Admin: 03/18/23 07:48 Dose: 100 mg Finasteride (Finasteride 5 Mg Tab) 5 mg PO QPM [facility] Stop: 04/15/23 20:59 Last Admin: 03/17/23 20:20 Dose: 5 mg Fluticasone Furoate (Fluticasone Furoate 100mcg 14 Puffs/Inhaler) 1 puffs INH DAILY [facility] Stop: 04/16/23 08:59 Last Admin: 03/18/23 07:49 Dose: 1 puffs Guaifenesin (Guaifenesin 600 Mg Tabcr) 600 mg PO Q12 [facility] Stop: 04/15/23 20:59 Last Admin: 03/18/23 07:48 Dose: 600 mg Heparin Sodium (Porcine) (Heparin Sod 5,000 Unit/0.5 Ml Vial) 5,000 units SQ Q1 2 [facility] Stop: 04/15/23 20:59 Last Admin: 03/18/23 07:48 Dose: 5,000 units Hydroxyzine HCl (Hydroxyzine Hcl 10 Mg Tab) 20 mg PO HS PRN PRN Reason: Itching Stop: 04/15/23 16:59 Methylprednisolone 40 mg/ (Syringe) 0.64 mls @ 1.5 mls/min IV Q8H [facility] Stop: 04/15/23 21:59 Last Admin: 03/18/23 05:06 Dose: 1.5 mls/min Lactobacillus Acidophilus (Advanced Probiotic 1250 Mg Capsule) 2 cap PO HS [facility] Stop: 04/15/23 20:59 Last Admin: 03/17/23 20:21 Dose: 2 cap Levothyroxine Sodium (Levothyroxine Sodium 75 Mcg Tablet) 75 mcg PO DAILYBB [facility] Stop: 04/16/23 06:29 Last Admin: 03/18/23 05:06 Dose: 75 mcg Lorazepam (Lorazepam 0.5 Mg Tab) 0.5 mg PO BID PRN PRN Reason: Anxiety Stop: 04/15/23 16:59 Roflumilast (Roflumilast 500 Mcg Tab) 500 mcg PO QAM [facility] Stop: 04/16/23 08:59 Last Admin: 03/18/23 07:48 Dose: 500 mcg Sertraline HCl (Sertraline Hcl 100 Mg Tablet) 100 mg PO QAM [facility] Stop: 04/16/23 08:59 Last Admin: 03/18/23 07:48 Dose: 100 mg Simvastatin (Simvastatin 40 Mg Tab) 40 mg PO HS [facility] Stop: 04/15/23 20:59 Last Admin: 03/17/23 20:22 Dose: 40 mg Tamsulosin HCl (Tamsulosin Hcl 0.4 Mg Cap) 0.4 mg PO QPM [facility] Stop: 04/15/23 20:59 Last Admin: 04/30/23 20:22 Dose: 0.4 mg Umeclidinium/Vilanterol (Umeclidinium/Vilanterol 62.5/25mcg 7 Puffs/Inhaler) 1 puffs INH DAILY [facility] Stop: 04/16/23 08:59 Last Admin: 03/18/23 07:49 Dose: 1 puffs
--- NOTE | 2023-03-18 08:58 | Electrocardiogram Report ---
Test Reason : Blood Pressure : / mmHG Vent. Rate : 104 BPM Atrial Rate : 104 BPM P-R Int : 188 ms QRS Dur : 086 ms QT Int : 342 ms P-R-T Axes : 000 -56 033 degrees QTc Int : 449 ms Poor data quality, interpretation may be adversely affected Sinus tachycardia Left axis deviation Inferior infarct , age undetermined Cannot rule out Anterior infarct , age undetermined Abnormal ECG When compared with ECG of 31-MAR-2017 11:18, QRS axis Shifted left Inferior infarct is now Present ST no longer elevated in Lateral leads Confirmed by Carson Paris ([id number]) on 03/18/2023 8:57:59 AM Referred By: Confirmed By:Carson Paris
--- NOTE | 2023-03-18 09:02 | Electrocardiogram Report ---
Test Reason : Blood Pressure : / mmHG Vent. Rate : 079 BPM Atrial Rate : 079 BPM P-R Int : 206 ms QRS Dur : 082 ms QT Int : 384 ms P-R-T Axes : 020 -48 045 degrees QTc Int : 440 ms Normal sinus rhythm Left axis deviation Inferior infarct (cited on or before 16-MAR-2023) Abnormal ECG When compared with ECG of 16-MAR-2023 13:22, (unconfirmed) No significant change Confirmed by Carson Paris ([id number]) on 03/18/2023 9:02:34 AM Referred By: REFERRED SELF Confirmed By:Carson Paris
[2023-03-18] MEDS ORDERED: POLYETHYLENE (MIRALAX) 17 GM PACK PO PRN (13:47)
[2023-03-18] MEDS: ASPIRIN 81 MG ECTAB PO SCH (20:29)
[2023-03-18] MEDS: FINASTERIDE 5 MG TAB PO SCH (20:30)
[2023-03-18] MEDS: ADVANCED PROBIOTIC 1250 MG CAPSULE PO SCH (20:31)
[2023-03-18] MEDS: SIMVASTATIN 40 MG TAB PO SCH (20:32)
[2023-03-18] MEDS: TAMSULOSIN HCL 0.4 MG CAP PO SCH (20:32)
[2023-03-19] MEDS: methylPREDNISolone 40 MG in SYRINGE 0 ML IV SCH ×3 (05:43→21:28)
[2023-03-19] MEDS: LEVOTHYROXINE SODIUM 75 MCG TABLET PO SCH (05:43)
[2023-03-19 06:53] LABS: BUN Creatinine Ratio 38.8 (10-20); Calcium 8.9 mg/dl (8.6-10.3); Creatinine Clr Calc Pharmacy 79.2 ml/min; Est GFR (African American) 83.5 ml/min; Magnesium 2.1 mg/dl (1.7-2.4); Phosphorus 2.7 mg/dl (2.5-4.9); Potassium 3.7 mmol/L (3.5-5.1)
[2023-03-19] MEDS: ALBUT/IPRATROP 3MG/0.5MG NEB 3 ML VIAL NEB SCH ×4 (07:00→19:32)
--- NOTE | 2023-03-19 07:52 | Hospitalist Progress Note ---
Date of Service March 19, 2023 Assessment & Plan (1) Acute respiratory failure with hypoxia: (2) COPD exacerbation: Plan: Acute resp. failure, hx of COPD,group D- likely COPD exacerbation, hx of CAD - poss. component of CHF Pt w/ weakness, and feeling "shaky" at home EMS called and reported SBP 200, gave nitro x2, duoneb, cpap In ED received Duoneb, solumedrol, IV lasix, able to go from 15L oxymask down to 4L in ED CXR 1. Cardiomegaly and emphysema without radiographic evidence of congestive failure. 2. Bibasilar airspace opacities could represent scarring/atelectasis versus pneumonia/aspiration pneumonitis. Clinical correlation will be required and radiographic follow-up to resolution is recommended. BNP 111 Initial trop negative- repeat elevated from previous but still normal - trended down ECG, monitor on tele, Echo checked - no wall motion abnormality, no sign. change from previous study For CAD, HTN, HLD - cont. ASA, statin, zetia, atenolol, chlorthalidone On physical exam pt appears euvolemic, for now will not continue any lasix, will re-assess daily Biofire negative Procal - negative sputum cultx ordered - normal mary Cont. home meds for COPD - Trelegy, Daliresp, - also cont. duoneb, guaifenesin, solumedrol, flutter valve, IS 5/1 Oxygen requirement down to 3L. Pt feeling better however very week. PT/OT ordered Pt's at the bedside and has multiple concerns, including dysphagia/ ? food regurg. - will consult w/speech therapist 5/2 currently on 2L of suppl. O2, CM and [facility] liason involved as well, as pt will likely need HH Hypothyroidism - cont. home levothyroxine BPH - cont. finasteride, tamsulosin DVT ppx - heparin subq Dispo: PCU Code: DNR/DNI Admission and Anticipated Discharge Date Admission Date: March 16, 2023 Subjective Pt seen in follow up of hypoxia, copd exacerbation Sitting up in chair, in NAD He is eating breakfast Continues to use 2 L of supplemental oxygen Denies any chest pain, denies shortness of breath. + cough and mucus production No abdominal pain, nausea or vomiting. Review of Systems Review of Systems: All systems reviewed & are unremarkable except as noted in Subjective Physical Exam Physical Exam: Constitutional:L WD/WN, elderly M i n NAD, on suppl. O 2 Eyes: PERRL, EOMI, conju nctivae normal, an icteric sclerae ENMT: external ear and n ose normal Neck: supple Respiratory: no respiratory dis tress, no labored breathing and does not use accessory muscles, no wheez ing, somewhat dimi nished breath soun ds Cardiovascular:L RRR, no murmur, no edema Chest (Breasts): Chest: normal insp ection of chest Gastrointestinal ( Abdomen): normal bowel sound s, soft, nontender Musculoskeletal: moves extremities Skin: no rashes, warm an d dry Neurologic: PERRL, EOMI, no fa ce palsy, no dysar thria, moves extre mities Psychiatric: A+Ox3, euthymic af fect Lymphatic: no lymphedema Results & Data Results & Data Vital Signs (Past 12 Hours) Vital Signs Temp Pulse Pulse Resp BP Pulse Ox O2 Del Method 03/19/23 07:00 63 18 91 Nasal Cannula 03/19/23 06:58 36.7 C 60 18 174/90 H 92 Nasal Cannula 03/19/23 02:57 36.6 C 60 18 147/78 H 93 Nasal Cannula 03/18/23 23:00 63 03/18/23 22:59 36.7 C 64 18 148/78 H 92 Nasal Cannula 03/18/23 20:06 36.6 C 68 18 159/69 H 92 Nasal Cannula O2 Flow Rate 03/19/23 07:00 2 03/19/23 06:58 03/19/23 02:57 03/18/23 23:00 03/18/23 22:59 03/18/23 20:06 Laboratory Results 03/19/23 Range/Units 05:29 Sodium 137 (136-145) mmol/L Potassium 3.7 (3.5-5.1) mmol/L Chloride 99 (98-107) mmol/L Carbon Dioxide 29 (21-32) mmol/L Anion Gap 9 (3-11) BUN 38 H (6-23) mg/dl Creatinine 0.98 (0.6-1.4) mg/dl Est Cr Clr Drug Dosing 79.2 ml/min Est GFR ( Amer) 83.5 ml/min Est GFR (Non-Af Amer) 72.0 ml/min BUN/Creatinine Ratio 38.8 H (10-20) Glucose 128 H (70-99(Fasting)) mg/dl Calcium 8.9 (8.6-10.3) mg/dl Phosphorus 2.7 (2.5-4.9) mg/dl Magnesium 2.1 (1.7-2.4) mg/dl Medications Administered Current Inpatient Medications Acetaminophen (Acetaminophen 325 Mg Tab) 650 mg PO Q4H PRN PRN Reason: Pain or Fever Stop: 04/15/23 14:50 Acetaminophen (Acetaminophen 325 Mg Tab) 650 mg PO Q8H PRN PRN Reason: Pain Stop: 04/15/23 17:25 Albuterol (Albut/Ipratrop 3mg/0.5mg Neb 3 Ml Vial) 3 ml NEB QIDR [facility]; Protocol Stop: 04/15/23 18:59 Last Admin: 03/19/23 07:00 Dose: 3 ml Aspirin (Aspirin 81 Mg Ectab) 81 mg PO QPM [facility] Stop: 04/15/23 20:59 Last Admin: 03/18/23 20:29 Dose: 81 mg Atenolol (Atenolol 25 Mg Tablet) 25 mg PO BID [facility] Stop: 04/15/23 20:59 Last Admin: 03/18/23 20:29 Dose: 25 mg Chlorthalidone (Chlorthalidone 25 Mg Tab) 12.5 mg PO DAILY [facility] Stop: 04/16/23 08:59 Last Admin: 03/18/23 07:48 Dose: 12.5 mg Doxycycline Hyclate (Doxycycline Hyclate 100 Mg Cap) 100 mg PO BID [facility] Stop: 03/23/23 20:59 Last Admin: 03/18/23 20:30 Dose: 100 mg Finasteride (Finasteride 5 Mg Tab) 5 mg PO QPM [facility] Stop: 04/15/23 20:59 Last Admin: 03/18/23 20:30 Dose: 5 mg Fluticasone Furoate (Fluticasone Furoate 100mcg 14 Puffs/Inhaler) 1 puffs INH DAILY [facility] Stop: 04/16/23 08:59 Last Admin: 03/18/23 07:49 Dose: 1 puffs Guaifenesin (Guaifenesin 600 Mg Tabcr) 600 mg PO Q12 [facility] Stop: 04/15/23 20:59 Last Admin: 03/18/23 20:30 Dose: 600 mg Heparin Sodium (Porcine) (Heparin Sod 5,000 Unit/0.5 Ml Vial) 5,000 units SQ Q12 [facility] Stop: 04/15/23 20:59 Last Admin: 03/18/23 20:31 Dose: 5,000 units Hydroxyzine HCl (Hydroxyzine Hcl 10 Mg Tab) 20 mg PO HS PRN PRN Reason: Itching Stop: 04/15/23 16:59 Methylprednisolone 40 mg/ (Syringe) 0.64 mls @ 1.5 mls/min IV Q8H [facility] Stop: 04/15/23 21:59 Last Admin: 03/19/23 05:43 Dose: 1.5 mls/min Lactobacillus Acidophilus (Advanced Probiotic 1250 Mg Capsule) 2 cap PO HS [facility] Stop: 04/15/23 20:59 Last Admin: 03/18/23 20:31 Dose: 2 cap Levothyroxine Sodium (Levothyroxine Sodium 75 Mcg Tablet) 75 mcg PO DAILYBB [facility] Stop: 04/16/23 06:29 Last Admin: 03/19/23 05:43 Dose: 75 mcg Lorazepam (Lorazepam 0.5 Mg Tab) 0.5 mg PO BID PRN PRN Reason: Anxiety Stop: 04/15/23 16:59 Polyethylene Glycol (Polyethylene (Miralax) 17 Gm Pack) 17 gm PO DAILY PRN PRN Reason: Constipation Stop: 04/17/23 13:46 Roflumilast (Roflumilast 500 Mcg Tab) 500 mcg PO QAM [facility] Stop: 04/16/23 08:59 Last Admin: 03/18/23 07:48 Dose: 500 mcg Sertraline HCl (Sertraline Hcl 100 Mg Tablet) 100 mg PO QAM [facility] Stop: 04/16/23 08:59 Last Admin: 03/18/23 07:48 Dose: 100 mg Simvastatin (Simvastatin 40 Mg Tab) 40 mg PO HS [facility] Stop: 04/15/23 20:59 Last Admin: 03/18/23 20:32 Dose: 40 mg Tamsulosin HCl (Tamsulosin Hcl 0.4 Mg Cap) 0.4 mg PO QPM [facility] Stop: 04/15/23 20:59 Last Admin: 03/18/23 20:32 Dose: 0.4 mg Umeclidinium/Vilanterol (Umeclidinium/Vilanterol 62.5/25mcg 7 Puffs/Inhaler) 1 puffs INH DAILY [facility] Stop: 04/16/23 08:59 Last Admin: 03/18/23 07:49 Dose: 1 puffs
[2023-03-19] MEDS: UMECLIDINIUM/VILANTEROL 62.5/25MCG 7 PUFFS/INHALER INH SCH (07:54)
[2023-03-19] MEDS: FLUTICASONE FUROATE 100MCG 14 PUFFS/INHALER INH SCH (07:55)
[2023-03-19] MEDS: CHLORTHALIDONE 25 MG TAB PO SCH (07:56)
[2023-03-19] MEDS: ATENOLOL 25 MG TABLET PO SCH ×2 (07:56→21:25)
[2023-03-19] MEDS: DOXYCYCLINE HYCLATE 100 MG CAP PO SCH ×2 (07:57→21:26)
[2023-03-19] MEDS: guaiFENesin 600 MG TABCR PO SCH ×2 (07:58→21:27)
[2023-03-19] MEDS: HEPARIN SOD 5,000 UNIT/0.5 ML VIAL SQ SCH ×2 (07:59→21:27)
[2023-03-19] MEDS: ROFLUMILAST 500 MCG TAB PO SCH (07:59)
[2023-03-19] MEDS: SERTRALINE HCL 100 MG TABLET PO SCH (07:59)
[2023-03-19] MEDS ORDERED: LORATADINE 10 MG TAB PO ONE (09:52)
[2023-03-19] MEDS ORDERED: ALUMINUM/MAGNESIUM/SIMETH (MAALOX MAX) 30 ML UDC PO STA (20:15)
[2023-03-19] MEDS: ASPIRIN 81 MG ECTAB PO SCH (21:25)
[2023-03-19] MEDS: FINASTERIDE 5 MG TAB PO SCH (21:26)
[2023-03-19] MEDS: SIMVASTATIN 40 MG TAB PO SCH (21:28)
[2023-03-19] MEDS: TAMSULOSIN HCL 0.4 MG CAP PO SCH (21:28)
[2023-03-19] MEDS: ADVANCED PROBIOTIC 1250 MG CAPSULE PO SCH (21:28)
[2023-03-20] MEDS: LEVOTHYROXINE SODIUM 75 MCG TABLET PO SCH (05:29)
[2023-03-20] MEDS: methylPREDNISolone 40 MG in SYRINGE 0 ML IV SCH ×2 (05:29→14:48)
[2023-03-20 06:52] LABS: BUN Creatinine Ratio 33.3 (10-20); Calcium 8.8 mg/dl (8.6-10.3); Creatinine Clr Calc Pharmacy 61.7 ml/min; Est GFR (African American) 61.6 ml/min; Est GFR (Non-African American) 53.1 ml/min; Magnesium 2.3 mg/dl (1.7-2.4); Potassium 3.6 mmol/L (3.5-5.1)
[2023-03-20] MEDS: ALBUT/IPRATROP 3MG/0.5MG NEB 3 ML VIAL NEB SCH ×4 (07:07→19:40)
[2023-03-20] MEDS: FLUTICASONE FUROATE 100MCG 14 PUFFS/INHALER INH SCH (08:34)
[2023-03-20] MEDS: UMECLIDINIUM/VILANTEROL 62.5/25MCG 7 PUFFS/INHALER INH SCH (08:34)
[2023-03-20] MEDS: DOXYCYCLINE HYCLATE 100 MG CAP PO SCH ×2 (08:35→19:57)
[2023-03-20] MEDS: ATENOLOL 25 MG TABLET PO SCH ×2 (08:35→19:57)
[2023-03-20] MEDS: SERTRALINE HCL 100 MG TABLET PO SCH (08:35)
[2023-03-20] MEDS: CHLORTHALIDONE 25 MG TAB PO SCH (08:35)
[2023-03-20] MEDS: ROFLUMILAST 500 MCG TAB PO SCH (08:35)
[2023-03-20] MEDS: HEPARIN SOD 5,000 UNIT/0.5 ML VIAL SQ SCH ×2 (08:35→19:57)
[2023-03-20] MEDS: guaiFENesin 600 MG TABCR PO SCH ×2 (08:36→19:57)
--- NOTE | 2023-03-20 09:50 | Hospitalist Progress Note ---
Date of Service March 20, 2023 Assessment & Plan (1) Acute respiratory failure with hypoxia: (2) COPD exacerbation: Plan: Acute resp. failure, hx of COPD,group D- likely COPD exacerbation, hx of CAD - poss. component of CHF Pt w/ weakness, and feeling "shaky" at home EMS called and reported SBP 200, gave nitro x2, duoneb, cpap In ED received Duoneb, solumedrol, IV lasix, able to go from 15L oxymask down to 4L in ED CXR 1. Cardiomegaly and emphysema without radiographic evidence of congestive failure. 2. Bibasilar airspace opacities could represent scarring/atelectasis versus pneumonia/aspiration pneumonitis. Clinical correlation will be required and radiographic follow-up to resolution is recommended. BNP 111 Initial trop negative- repeat elevated from previous but still normal - trended down ECG, monitor on tele, Echo checked - no wall motion abnormality, no sign. change from previous study For CAD, HTN, HLD - cont. ASA, statin, zetia, atenolol, chlorthalidone On physical exam pt appears euvolemic, lasix no continued, re-assess daily Biofire negative Procal - negative sputum cultx ordered - normal mary Cont. home meds for COPD - Trelegy, Daliresp, - also cont. duoneb, guaifenesin, solumedrol, flutter valve, IS 5/1 Oxygen requirement down to 3L. Pt feeling better however very week. PT/OT ordered Pt's at the bedside and has multiple concerns, including dysphagia/ ? food regurg. - will consult w/speech therapist 5/2 currently on 2L of suppl. O2, CM and [facility] liason involved as well, as pt will likely need HH 5/3 currently on RA - discussed likely 2 step study tmrw AM and D[facility] tmrw if no complications in the meantime. Discussed in detail with at the bedside and CM. Stop IV solumdrol. Switch to PO prednisone starting tmrw, will likely need taper on DC, followup w/ [facility] pulm. Hypothyroidism - cont. home levothyroxine BPH - cont. finasteride, tamsulosin DVT ppx - heparin subq Dispo: PCU Code: DNR/DNI Admission and Anticipated Discharge Date Admission Date: March 16, 2023 Subjective Pt seen in follow up of hypoxia, copd exacerbation Sitting up in chair, in NAD, currently on RA Denies any chest pain, denies shortness of breath. + cough and mucus production No abdominal pain, nausea or vomiting. Pt's present at the bedside and updated. CM also present at the bedside. Review of Systems Review of Systems: All systems reviewed & are unremarkable except as noted in Subjective Physical Exam Physical Exam: Constitutional:L WD/WN, elderly M i n NAD, on suppl. O 2 Eyes: PERRL, EOMI, conju nctivae normal, an icteric sclerae ENMT: external ear and n ose normal Neck: supple Respiratory: no respiratory dis tress, no labored breathing and does not use accessory muscles, no wheez ing, somewhat dimi nished breath soun ds Cardiovascular:L RRR, no murmur, no edema Chest (Breasts): Chest: normal insp ection of chest Gastrointestinal ( Abdomen): normal bowel sound s, soft, nontender Musculoskeletal: moves extremities Skin: no rashes, warm an d dry Neurologic: PERRL, EOMI, no fa ce palsy, no dysar thria, moves extre mities Psychiatric: A+Ox3, euthymic af fect Lymphatic: no lymphedema Results & Data Results & Data Vital Signs (Past 12 Hours) Vital Signs Temp Pulse Pulse Pulse Resp BP Pulse Ox 03/20/23 07:44 36.5 C 73 18 160/72 H 90 03/20/23 07:07 58 L 18 95 03/20/23 03:13 36.7 C 61 18 144/74 H 92 03/19/23 23:00 67 03/19/23 22:51 36.4 C L 62 18 148/79 H 93 O2 Del Method O2 Flow Rate 03/20/23 07:44 Nasal Cannula 2 03/20/23 07:07 Nasal Cannula 2 03/20/23 03:13 Nasal Cannula 2 03/19/23 23:00 03/19/23 22:51 Nasal Cannula 2 Laboratory Results 03/20/23 Range/Units 06:06 Sodium 139 (136-145) mmol/L Potassium 3.6 (3.5-5.1) mmol/L Chloride 100 (98-107) mmol/L Carbon Dioxide 33 H (21-32) mmol/L Anion Gap 6 (3-11) BUN 42 H (6-23) mg/dl Creatinine 1.26 (0.6-1.4) mg/dl Est Cr Clr Drug Dosing 61.7 ml/min Est GFR ( Amer) 61.6 ml/min Est GFR (Non-Af Amer) 53.1 ml/min BUN/Creatinine Ratio 33.3 H (10-20) Glucose 156 H (70-99(Fasting)) mg/dl Calcium 8.8 (8.6-10.3) mg/dl Phosphorus 3.0 (2.5-4.9) mg/dl Magnesium 2.3 (1.7-2.4) mg/dl Medications Administered Current Inpatient Medications Acetaminophen (Acetaminophen 325 Mg Tab) 650 mg PO Q4H PRN PRN Reason: Pain or Fever Stop: 04/15/23 14:50 Acetaminophen (Acetaminophen 325 Mg Tab) 650 mg PO Q8H PRN PRN Reason: Pain Stop: 04/15/23 17:25 Albuterol (Albut/Ipratrop 3mg/0.5mg Neb 3 Ml Vial) 3 ml NEB QIDR [facility]; Protocol Stop: 04/15/23 18:59 Last Admin: 03/20/23 07:07 Dose: 3 ml Aspirin (Aspirin 81 Mg Ectab) 81 mg PO QPM [facility] Stop: 04/15/23 20:59 Last Admin: 03/19/23 21:25 Dose: 81 mg Atenolol (Atenolol 25 Mg Tablet) 25 mg PO BID [facility] Stop: 04/15/23 20:59 Last Admin: 03/20/23 08:35 Dose: 25 mg Chlorthalidone (Chlorthalidone 25 Mg Tab) 12.5 mg PO DAILY [facility] Stop: 04/16/23 08:59 Last Admin: 03/20/23 08:35 Dose: 12.5 mg Doxycycline Hyclate (Doxycycline Hyclate 100 Mg Cap) 100 mg PO BID [facility] Stop: 03/23/23 20:59 Last Admin: 03/20/23 08:35 Dose: 100 mg Finasteride (Finasteride 5 Mg Tab) 5 mg PO QPM [facility] Stop: 04/15/23 20:59 Last Admin: 03/19/23 21:26 Dose: 5 mg Fluticasone Furoate (Fluticasone Furoate 100mcg 14 Puffs/Inhaler) 1 puffs INH DAILY [facility] Stop: 04/16/23 08:59 Last Admin: 03/20/23 08:34 Dose: 1 puffs Guaifenesin (Guaifenesin 600 Mg Tabcr) 600 mg PO Q12 [facility] Stop: 04/15/23 20:59 Last Admin: 03/20/23 08:36 Dose: 600 mg Heparin Sodium (Porcine) (Heparin Sod 5,000 Unit/0.5 Ml Vial) 5,000 units SQ Q12 [facility] Stop: 04/15/23 20:59 Last Admin: 03/20/23 08:35 Dose: 5,000 units Hydroxyzine HCl (Hydroxyzine Hcl 10 Mg Tab) 20 mg PO HS PRN PRN Reason: Itching Stop: 04/15/23 16:59 Methylprednisolone 40 mg/ (Syringe) 0.64 mls @ 1.5 mls/min IV Q8H [facility] Stop: 04/15/23 21:59 Last Admin: 03/20/23 05:29 Dose: 1.5 mls/min Lactobacillus Acidophilus (Advanced Probiotic 1250 Mg Capsule) 2 cap PO HS [facility] Stop: 04/15/23 20:59 Last Admin: 03/19/23 21:28 Dose: 2 cap Levothyroxine Sodium (Levothyroxine Sodium 75 Mcg Tablet) 75 mcg PO DAILYBB [facility] Stop: 04/16/23 06:29 Last Admin: 03/20/23 05:29 Dose: 75 mcg Lorazepam (Lorazepam 0.5 Mg Tab) 0.5 mg PO BID PRN PRN Reason: Anxiety Stop: 04/15/23 16:59 Polyethylene Glycol (Polyethylene (Miralax) 17 Gm Pack) 17 gm PO DAILY PRN PRN Reason: Constipation Stop: 04/17/23 13:46 Roflumilast (Roflumilast 500 Mcg Tab) 500 mcg PO QAM [facility] Stop: 04/16/23 08:59 Last Admin: 03/20/23 08:35 Dose: 500 mcg Sertraline HCl (Sertraline Hcl 100 Mg Tablet) 100 mg PO QAM [facility] Stop: 04/16/23 08:59 Last Admin: 03/20/23 08:35 Dose: 100 mg Simvastatin (Simvastatin 40 Mg Tab) 40 mg PO HS [facility] Stop: 04/15/23 20:59 Last Admin: 03/19/23 21:28 Dose: 40 mg Tamsulosin HCl (Tamsulosin Hcl 0.4 Mg Cap) 0.4 mg PO QPM [facility] Stop: 04/15/23 20:59 Last Admin: 03/19/23 21:28 Dose: 0.4 mg Umeclidinium/Vilanterol (Umeclidinium/Vilanterol 62.5/25mcg 7 Puffs/Inhaler) 1 puffs INH DAILY [facility] Stop: 04/16/23 08:59 Last Admin: 03/20/23 08:34 Dose: 1 puffs
[2023-03-20] MEDS: ADVANCED PROBIOTIC 1250 MG CAPSULE PO SCH (19:57)
[2023-03-20] MEDS: ASPIRIN 81 MG ECTAB PO SCH (19:57)
[2023-03-20] MEDS: FINASTERIDE 5 MG TAB PO SCH (19:57)
[2023-03-20] MEDS: SIMVASTATIN 40 MG TAB PO SCH (19:57)
[2023-03-20] MEDS: TAMSULOSIN HCL 0.4 MG CAP PO SCH (19:57)
[2023-03-21] MEDS: LEVOTHYROXINE SODIUM 75 MCG TABLET PO SCH (05:45)
[2023-03-21] MEDS: ALBUT/IPRATROP 3MG/0.5MG NEB 3 ML VIAL NEB SCH ×3 (07:07→14:50)
[2023-03-21 07:11] LABS: Hematocrit (blood only) 45.7 % (42.0-52.0); Hemoglobin 15.5 g/dl (14.0-18.0); Mean Corpuscular Hemoglobin 29.1 pg (25.0-34.0); Mean Corpuscular Hgb Conc 33.9 g/dL (32.0-36.0); Mean Corpuscular Volume 85.9 fL (80.0-100.0); Mean Platelet Volume 10.3 fL (9.4-12.4); Platelet Count 261 K/uL (130-400); RDW Coefficient of Variation 14.3 % (11.5-14.5); RDW Standard Deviation 44.9 fL (36.4-46.3); Red Blood Count 5.32 M/uL (4.70-6.10); White Blood Count 16.06 K/ul (4.8-10.8)
[2023-03-21 07:16] LABS: BUN Creatinine Ratio 33.9 (10-20); Calcium 9.1 mg/dl (8.6-10.3); Creatinine Clr Calc Pharmacy 67.5 ml/min; Est GFR (African American) 68.8 ml/min; Est GFR (Non-African American) 59.4 ml/min; Magnesium 2.2 mg/dl (1.7-2.4); Phosphorus 3.6 mg/dl (2.5-4.9); Potassium 3.5 mmol/L (3.5-5.1)
[2023-03-21] MEDS: FLUTICASONE FUROATE 100MCG 14 PUFFS/INHALER INH SCH (08:38)
[2023-03-21] MEDS: UMECLIDINIUM/VILANTEROL 62.5/25MCG 7 PUFFS/INHALER INH SCH (08:38)
[2023-03-21] MEDS: HEPARIN SOD 5,000 UNIT/0.5 ML VIAL SQ SCH (08:39)
[2023-03-21] MEDS: CHLORTHALIDONE 25 MG TAB PO SCH (08:39)
[2023-03-21] MEDS: guaiFENesin 600 MG TABCR PO SCH (08:39)
[2023-03-21] MEDS: ATENOLOL 25 MG TABLET PO SCH (08:39)
[2023-03-21] MEDS: SERTRALINE HCL 100 MG TABLET PO SCH (08:39)
[2023-03-21] MEDS: DOXYCYCLINE HYCLATE 100 MG CAP PO SCH (08:39)
[2023-03-21] MEDS: ROFLUMILAST 500 MCG TAB PO SCH (08:39)
[2023-03-21] MEDS ORDERED: predniSONE 20 MG TAB PO STA (12:07)
--- NOTE | 2023-03-21 12:09 | Discharge Summary ---
Discharge Summary Date of Service March 21, 2023 Notes For Next Care Provider Gave wheeled walker script at discharge No oxygen needs per 2 step evaluation at discharge Medication Changes From Visit NEW doxycycline NEW Prednisone Admission HPI Per Admitting Provider Patient is an 82-year-old male with history of COPD, group D, chronic respiratory failure with hypoxia, (2 liters of oxygen at night), CAD, PVD, carotid disease, hypertension, AAA s/p repair, iron deficiency anemia, history of A-fib, dyslipidemia, hypothyroidism who presents with hypoxia, shortness of breath. Per patient and , patient has been feeling weak for past few days, this morning he was preparing breakfast and after breakfast he had to rest. He became shaky and his applied his oxygen. She also called 911. Per ER report, patient was hypotensive with systolic blood pressure of 200 when EMS arrived. He received nitroglycerin x2 sublingual, and DuoNeb. Supplemental oxygen was also applied, CPAP -> patient arrived on 15 L. Solu-Medrol was given in ED, and DuoNeb, as well as IV lasix and he was able to be weaned down to 4 to 5 L OxyMask. Currently patient is lying in bed, in no acute distress, on supplemental oxygen. Patient's is present at the bedside. He reports feeling fairly well right now. He denies any chest pain. He confirms the weakness and feeling shaky this morning. He cannot say if he felt short of breath, as he says he always feels short of breath. Not aware of any fevers or chills, stomach ache nausea vomiting diarrhea, feeling lightheaded or dizzy. Principal Dx & Hospital Course #1 = Principal Diagnosis (1) Acute respiratory failure with hypoxia: (2) COPD exacerbation: Acute resp. failure, hx of COPD,group D- likely COPD exacerbation, hx of CAD - poss. component of CHF Pt w/ weakness, and feeling "shaky" at home EMS called and reported SBP 200, gave nitro x2, duoneb, cpap In ED received Duoneb, solumedrol, IV lasix, able to go from 15L oxymask down to 4L in ED CXR 1. Cardiomegaly and emphysema without radiographic evidence of congestive failure. 2. Bibasilar airspace opacities could represent scarring/atelectasis versus pneumonia/aspiration pneumonitis. Clinical correlation will be required and radiographic follow-up to resolution is recommended. BNP 111 Initial trop negative- repeat elevated from previous but still normal - trended down ECG, monitor on tele, Echo checked - no wall motion abnormality, no sign. change from previous study For CAD, HTN, HLD - cont. ASA, statin, zetia, atenolol, chlorthalidone On physical exam pt appears euvolemic, lasix no continued, re-assess daily Biofire negative Procal - negative sputum cultx ordered - normal mary Cont. home meds for COPD - Trelegy, Daliresp, - also cont. duoneb, guaifenesin, solumedrol, flutter valve, IS 5/ Oxygen requirement down to 3L. Pt feeling better however very week. PT/OT ordered Pt's at the bedside and has multiple concerns, including dysphagia/ ? food regurg. - will consult w/speech therapist / currently on 2L of suppl. O2, CM and [facility] liason involved as well, as pt will likely need HH 5/3 currently on RA - discussed likely 2 step study tmrw AM and D[facility] tmrw if no complications in the meantime. Discussed in detail with at the bedside and CM. Stop IV solumdrol. Switch to PO prednisone starting tmrw, will likely need taper on DC, followup w/ [facility] pulm. Hypothyroidism - cont. home levothyroxine BPH - cont. finasteride, tamsulosin DVT ppx - heparin subq Dispo: PCU Code: DNR/DNI Plan 82 yo M presented feeling shaky. Per EMS systolic in field was 200 and nitroglycerin x 2 doses was given. He was given a duoneb treatment and placed on CPAP. In the ER he received IV solumedrol, IV lasix and was able to wean down quickly to 4 LPM of oxygen supplementation. CXR revealed opacities at the bases. BNP was 111. Biofire was negative for covid or flu. Procalcitonin was negative. An echo revealed a normal EF with mild concentric LVH, and a calc ified aortic valve. He was continued on intravenous methylprednisolone, nebulized bronchodilator therapy, doxycycline and other supportive care efforts. He continued to improved with treatment and hypoxia eventually resolved. At time of discharge he was transitioned to oral prednisone and oral doxycycline with close primary care follow-up recommended. Discharged in stable condition. Prescription for a rolling walker was given at time of discharge. Also ordered outpatient PT and OT. Discharge Exam CONSTITUTIONAL: WNWD, vitals as above, generally well-appearing, NAD EYES: normal conjunctivae, no scleral icterus ENT: external ear and nose normal, MMM NECK: trachea midline, RESPIRATORY: clear to auscultation bilaterally, no crackles, rales or wheezes, normal respiratory effort CARDIOVASCULAR: regular rate and rhythm, S1 and 2 heard without murmurs, gallops or rubs, no JVD, no peripheral edema CHEST: inspection of chest was normal GASTROINTESTINAL: soft, nontender, ND, no guarding MUSCULOSKELETAL: strength 5/5 throughout, head is normocephalic and atraumatic SKIN: warm and dry NEUROLOGIC: CN 2-12 grossly intact, no sensory deficit, normal cognition, normal speech, no tremor PSYCHIATRIC: alert cooperative and oriented to person, place and time. Updated Medication List Medication Instructions Recorded Confirmed Type albuterol sulfate 90 mcg/actuation 2 puff inhalation QID PRN SHORT OF 08/12/19 03/16/23 History aerosol inhaler (Proventil HFA) BREATH aspirin 81 mg tablet,delayed 81 mg PO QPM 08/12/19 03/16/23 History release atenolol 50 mg tablet 25 mg PO BID 08/12/19 03/16/23 History betamethasone dipropionate 0.05 % 1 applic topical DAILY PRN Dry Skin 08/12/19 03/16/23 History topical cream cholecalciferol (vitamin D3) 50 2,000 unit PO QAM 08/12/19 03/16/23 History mcg (2,000 unit) tablet (Vitamin D3) coQ10 (ubiquinol) 100 mg capsule 100 mg PO QAM 08/12/19 03/16/23 History cyanocobalamin (vitamin B-12) 500 500 mcg PO QPM 08/12/19 03/16/23 History mcg tablet fluocinolone 0.025 % topical cream 1 applic topical BID PRN Dry Skin 08/12/19 03/16/23 History hydroxyzine HCl 10 mg tablet 20 mg PO HS PRN Itching 08/12/19 03/16/23 History iron,carbonyl 65 mg-vitamin C 125 1 tab PO 3XWK 08/12/19 03/16/23 History mg tablet,delayed release (Vitron-C) ketotifen fumarate 0.025 % (0.035 1 drp ophthalmic (eye) Q12H PRN 08/12/19 03/16/23 History %) eye drops (Zaditor) ITCHING EYES lactobacillus combination no.4 3 3,000 mmu cells PO QPM 08/12/19 03/16/23 History billion cell capsule (Probiotic) levothyroxine 75 mcg tablet 75 mcg PO DAILYBB 08/12/19 03/16/23 History lorazepam 1 mg tablet (Ativan) 0.5 mg PO BID PRN Anxiety 08/12/19 03/16/23 History roflumilast 500 mcg tablet 500 mcg PO QAM 08/12/19 03/16/23 History (Daliresp) simvastatin 40 mg tablet 40 mg PO HS 08/12/19 03/16/23 History vit C 50 mg-E 15 unit-zinc cit 4.5 1 tab PO QAM 08/12/19 03/16/23 History mg-lutein 2.5 mg-zeaxan chew tablet ([facility]) wheat dextrin 3 gram/3.5 gram oral 1 packet PO QAM 08/12/19 03/16/23 History powder packet (Benefiber Clear Sugar Free(dextrin)) cetirizine 10 mg tablet (Zyrtec) 10 mg PO QAM PRN Allergy Symptoms 02/01/21 03/16/23 History chlorthalidone 25 mg tablet 12.5 mg PO DAILY 02/01/21 03/16/23 History finasteride 5 mg tablet (Proscar) 5 mg PO QPM 02/01/21 03/16/23 History fluticasone fur. 100 mcg-umeclid 1 inh inhalation QAM 02/01/21 03/16/23 History 62.5 mcg-vilant 25 mcg inhalat.powder (Trelegy Ellipta) sertraline 100 mg tablet (Zoloft) 100 mg PO QAM 02/01/21 03/16/23 History tamsulosin 0.4 mg capsule (Flomax) 0.4 mg PO QPM 02/01/21 03/16/23 History acetaminophen 650 mg 650 mg PO Q8H PRN Pain 03/16/23 03/16/23 History tablet,extended release albuterol sulfate 2.5 mg/3 mL 2.5 mg inhalation Q4H PRN 03/16/23 03/16/23 History (0.083 %) solution for nebulization Shortness Of Breath Or Wheezing ammonium lactate 12 % topical cream 1 applic topical DAILY PRN Dry Skin 03/16/23 03/16/23 History ezetimibe 10 mg tablet 10 mg PO DAILY 03/16/23 03/16/23 History hydrocodone-homatropine 5 mg-1.5 5 ml PO Q6H PRN Cough 03/16/23 03/16/23 History mg/5 mL oral syrup metronidazole 0.75 % topical gel 1 applic topical DAILY PRN Skin 03/16/23 03/16/23 History Irritation mupirocin 2 % topical ointment 1 applic topical BID PRN Skin 03/16/23 03/16/23 History Irritation naphazoline 0.84293 %-pheniramine 1 drp OPB UD 03/16/23 03/16/23 History 0.315 % eye drops nystatin 100,000 unit/gram topical 1 applic topical TID PRN Skin 03/16/23 03/16/23 History powder Irritation potassium chloride 10 mEq 20 meq PO .DAILY WITH TE MEAL 03/16/23 03/16/23 History tablet,extended release(part/cryst) triamcinolone acetonide 0.1 % 1 applic topical BID PRN Rash 03/16/23 03/16/23 History topical ointment doxycycline hyclate 100 mg capsule 100 mg PO BID #6 caps 03/21/23 Rx prednisone 20 mg tablet 40 mg PO DAILY #6 tabs 03/21/23 Rx Hospital Stay Data Consultations 03/16/23 14:26 ED Decision to Admit Stat Pending Results Patient Have Any Pending Studies at Discharge: No Discharge Instructions Given to Patient (Per Discharging Provider) Please take all medications as instructed on discharge list below. You will need to continue wtih a short course of steroids and antibiotics as instructed. Please follow-up with Dr. Kaye next week as scheduled to ensure you are still feeling well since returning home. You were given a prescription for a walker with wheels to help you get around. Outpatient physical and occupational therapy was also ordered. You will likely need to contact the therapy office you are planning to use to schedule your first visit within the next couple of weeks. It was a pleasure taking care of you! Please call if you have any questions or problems. You can reach a [facility] hospitalist on duty at [facility] 24 hours a day by calling [phone]. Take care of yourself. Vanessa Wright DO [facility] Total Time Total Time Spent Total Time Spent (In Minutes): 60
== END 2023-03-21 17:37 | disposition home or self-care (01) | DRG 190 ==
LOC: ED 13:14 → SUATTDRO 14:51 → 2E 14:51